=== PATIENT | female | born 1945 | race Caucasian/White ===

== ENCOUNTER 2024-01-10 04:47 | Emergency (ER) | payer MEDICARE, OTHER, SELFPAY ==
[2024-01-10 04:49] VITALS: BP 119/73
[2024-01-10 05:00] VITALS: BP 126/68
[2024-01-10 05:03] VITALS: BMI 28.5
--- NOTE | 2024-01-10 05:21 | ED.GENMED ---
History of Present Illness
<LESLY Abdi - Last Filed: 01/10/24 05:30>
General
Chief Complaint: Chest Problem
Source: patient
Time Seen by Provider: 01/10/24 04:49
Travel History
Have you had any contact with someone who has COVID-19?: No
Do you have any symptoms of coronavirus? Fever > 100 degrees, chills, cough, shortness of breath, sore throat, loss of taste or smell, muscle aches, or headache?: No
History of Present Illness
History of Present Illness:
78 year old female with hx of GERD who BIBA from home with 2 episodes of R-sided chest pain that occurred last night. Pt had one episode last night while she was sleeping. States she woke up with pain described as a muscle-cramp to the R chest and
is nonradiating. She moved around and the pain resolved. Episode lasted for 5 seconds. She went back to sleep. She had a second episode just prior to EMS arrival that was similar and lasted for about 5 seconds and resolved prior to ED arrival.
Denies associated numbness, tingling, SOB, dizziness, head ache, abdominal pain, numbness, tingling, cough, URI symptoms. Currently, she is asymptomatic.
Past History
<LESLY Abdi - Last Filed: 01/10/24 05:30>
Past History
ED Past Medical History: None
ED Past Surgical History: Gynecological
Social History
Tobacco: Non-smoker
Living: alone
Review of Systems
<LESLY Abdi - Last Filed: 01/10/24 05:30>
Review of Systems
Allergies reviewed?: Yes
All Other Systems: ROS reviewed and negative except as documented in HPI and ROS
Constitutional: Reports no symptoms
EENT: Reports no symptoms
Respiratory: Reports no symptoms
Cardiac: Reports chest pain
ABD/GI: Reports no symptoms
: Reports no symptoms
Musculoskeletal: Reports no symptoms
Skin: Reports no symptoms
Neurological: Reports no symptoms
Endocrine: Reports no symptoms
Hematologic/Lymphatic: Reports no symptoms
Psychiatric: Reports no symptoms
Phy Exam
<LESLY Abdi - Last Filed: 01/10/24 05:30>
General Physical Exam
General Presentation: well appearing and no apparent distress
General age: appears stated age
General Skin: warm and dry
General Habitus: normal and elderly
General Mental: alert
General Hydration: appears well hydrated
Cardiovascular Exam
Cardiovascular Exam: regular rate/rhythm, no edema, no gallop, no murmur and normal peripheral pulses
Pulmonary Exam
Pulmonary Exam: lungs clear, no respiratory distress, no rales, chest non tender, no crackles, no rhonchi, no wheezing and no cough
Neurological Exam
Neurological Exam: alert and oriented x3
Skin Exam
Skin Exam: normal color and warm/dry
Psychiatric Exam
Psychiatric Exam: normal mood/affect
Course
<LESLY Abdi - Last Filed: 01/10/24 05:30>
Orders/Labs/Results
Orders:
Orders
01/10/24 04:57
EKG [Electrocardiogram (*1)] Urgent
Reason for Study: Other
Other Reason for Exam: muscle pain
EKG- Treatment ONCE
01/10/24 05:08
Complete Blood Count/With Diff Urgent
Comprehensive Metabolic Panel Urgent
Troponin I Urgent
Abnormal Lab Results
01/10/24
05:08
RBC 4.06 L 10^6/uL
(4.20-5.40)
MCHC 32.6 L g/dL
(33.0-37.0)
Monocytes % 9.4 H %
(1.7-9.3)
Chloride 111 H mmol/L
(98-107)
BUN 20 H mg/dl
(7-17)
Total Protein 5.7 L g/dl
(6.3-8.2)
Albumin 3.4 L g/dl
(3.5-5.0)
01/10/24 05:08
01/10/24 05:08
Vital Signs
Initial and Last Documented VS:
Initial Vital Signs
Temp Pulse Resp BP Pulse Ox
97.6 F 72 20 119/73 96
01/10/24 04:49 01/10/24 04:49 01/10/24 04:49 01/10/24 04:49 01/10/24 04:49
Last Documented Vital Signs
Temp Pulse Resp BP Pulse Ox
97.6 F 64 15 115/67 91
01/10/24 04:49 01/10/24 05:30 01/10/24 05:30 01/10/24 05:30 01/10/24 05:30
<Esther Sandoval MD - Last Filed: 01/10/24 06:03>
Orders/Labs/Results
Orders:
Orders
01/10/24 04:57
EKG [Electrocardiogram (*1)] Urgent
Reason for Study: Other
Other Reason for Exam: muscle pain
EKG- Treatment ONCE
01/10/24 05:08
Complete Blood Count/With Diff Urgent
Comprehensive Metabolic Panel Urgent
Troponin I Urgent
Abnormal Lab Results
01/10/24
05:08
RBC 4.06 L 10^6/uL
(4.20-5.40)
MCHC 32.6 L g/dL
(33.0-37.0)
Monocytes % 9.4 H %
(1.7-9.3)
Chloride 111 H mmol/L
(98-107)
BUN 20 H mg/dl
(7-17)
Total Protein 5.7 L g/dl
(6.3-8.2)
Albumin 3.4 L g/dl
(3.5-5.0)
01/10/24 05:08
01/10/24 05:08
Vital Signs
Initial and Last Documented VS:
Initial Vital Signs
Temp Pulse Resp BP Pulse Ox
97.6 F 72 20 119/73 96
01/10/24 04:49 01/10/24 04:49 01/10/24 04:49 01/10/24 04:49 01/10/24 04:49
Last Documented Vital Signs
Temp Pulse Resp BP Pulse Ox
97.6 F 64 15 115/67 91
01/10/24 04:49 01/10/24 05:30 01/10/24 05:30 01/10/24 05:30 01/10/24 05:30
<LESLY Abdi - Last Filed: 01/10/24 05:30>
MDM/Problems Addressed
Differential Diagnosis Includes:
musculoskeletal pain
MDM/Problems Addressed:
78 year old female who presents with 2 brief episodes of R sided chest pain that occurred last night.
<LESLY Abdi - Last Filed: 01/10/24 05:30>
*Critical Care Note
Total Time (30-74mins, 75-104mins- exclusive of procedures): Not Applicable
ED Attending Note
<LESLY Abdi - Last Filed: 01/10/24 05:30>
-
Portions of this chart may have been created with voice recognition software.� Occasional wrong word or��sound alike� substitutions may have occurred due to the inherent limitations of voice recognition software.
<Esther Sandoval MD - Last Filed: 01/10/24 06:03>
ED Attending Note
Patient seen and examined by attending physician: Yes
I performed the substantive portion of visit, reviewed & personally made and approve the management plan that is documented in note by myself or LAVERNE.: Yes
ED Attending Note:
78-year-old female who went to bed feeling her usual self. She awoke at around 2 AM, and at that time noticed discomfort in the right anterior chest area, lasting 5 seconds or so and then going away completely. She went back to sleep, and then
just before arrival here, she again developed 5 to 10 seconds of pain in the right anterior chest area without associated symptoms. It felt like a muscle cramp, and when she moved it went away. She remains asymptomatic at this time. She denies
fever, chills, cough, sore throat, rhinorrhea, dyspnea, back pain, neck pain, headache, dizziness, leg swelling, or other complaints. On exam,
GENERAL: Alert , in no apparent distress
EYE: pupils equal and reactive
NECK: Supple, no significant adenopathy.
ENT: o/p clr, mmm.
CARDIAC: Regular rate and rhythm .
LUNGS: Clear breath sounds bilaterally, no acute respiratory distress, no wheezes/rales/rhonchi
ABDOMEN: Soft, without focal tenderness, no r/g, no cvat
NEUROLOGICAL: Alert and oriented, no focal neuro deficits
SKIN: Warm and dry, skin intact.
MUSCULOSKELETAL: No edema, well perfused.
PSYCH: Normal and appropriate interaction.
Patient presents to the Emergency Department with momentary right-sided chest pain
Number and Complexity of Problems Addressed at the Encounter
� Chronic conditions affecting care:
� Acute Exacerbation and/or Progression of Chronic Illness:
� Differential Diagnosis includes: But not limited to musculoskeletal discomfort, pleurisy, anxiety, etc.
Amount and/or Complexity of Data to be Reviewed and Analyzed
� I performed an independent evaluation of and my interpretation is:
EKG: Read by me, normal sinus rhythm, normal rate, no acute ischemia
CT:
Xrays:
Laboratory Studies:generally unremarkable
Other:
� Review of other/old records reveals:
� Clinical information was obtained by an independent historian:
� Prescriptions/Medications Considered but not given:
� Further testing considered but not performed:
Risk of Complications and/or Morbidity or Mortality of Patient Management
� Social determinants of health affecting care:
� Discussion with other providers (PCP, Hospitalists, Consultants, etc):
� Escalation of care including admission/observation vs risk of discharge considered: 5:53 AM patient watching TV comfortably, no complaints. Strongly doubt worrisome etiology for her pain given characteristics, etc. Her exam
is normal, ECG normal, no findings in history or physical to suggest dissection, PE, ACS, pneumothorax, etc. Likely discharge after lab results.
Discharge Plan
Departure
Patient Disposition: Home (Routine Discharge)
Date of Disposition: 01/10/24
Time of Disposition: 06:03
Patient with high blood pressure during this ER visit?: No
Condition: Good
Discharge Problem:
Chest pain
Instructions: Chest Pain PCP Follow Up
Prescriptions:
No Action
zinc acetate 50 mg (zinc) Capsule
50 mg PO DAILY
famotidine 40 mg Tablet
40 mg PO HS
biotin 10,000 mcg Capsule
10,000 mcg PO DAILY
naproxen sodium [Aleve] 220 mg Tablet
220 mg PO PRN PRN (Reason: pain)
raloxifene [Evista] 60 mg Tablet
60 mg PO DAILY
Centrum Silver Tablet
1 tab PO DAILY
Ocuvite Tablet
1 tab PO DAILY
potassium gluconate 595 mg (99 mg) Tablet
See Rx Instructions .ROUTE .COMPLEX
Rx Instructions:
595 mg orally. Patient takes on Saturday, Saturday and Saturday.
cholecalciferol (vitamin D3) [Vitamin D3] 125 mcg (5,000 unit) Tablet
125 mcg PO DAILY
ascorbic acid (vitamin C) [Vitamin C] 1,000 mg Tablet
1 mg PO DAILY
vitamin B complex Tablet
1 tab PO DAILY
calcium carbonate [Tums 500] 500 mg calcium (1,250 mg) Tablet,Chewable
500 mg PO DAILY PRN (Reason: indigestion)
hydrocodone-acetaminophen 5-300 mg tablet
1 - 2 tab PO .q4-6 hours PRN (Reason: pain) 5 Days Qty: 5 0RF
amoxicillin 875 mg tablet
875 mg PO BID 7 Days Qty: 14 0RF
Referrals:
Bereket Holguin MD [Family Provider] - Next open appointment
Activity Restrictions/Additional Instructions:
IF YOU DEVELOP DIZZINESS, RECURRENT CHEST PAIN, TROUBLE BREATHING, FEVER, VOMITING, OR OTHER WORRISOME SIGNS, GO TO THE ER IMMEDIATELY!
Interventions
Interventions:
*Risk Screen - Suicide Last Done: 01/10/24 04:49
*General Assessment Last Done: 01/10/24 04:49
*Neglect/Abuse Screening Last Done: 01/10/24 04:49
ED- Fall Risk Assessment Last Done: 01/10/24 04:59
*ED COVID-19 Vaccine History Last Done: 01/10/24 04:59
ED- Cardiac Assessment Last Done: 01/10/24 04:59
ED- Pulmonary Assessment Last Done: 01/10/24 04:59
Discharge Date and Time
Print Language: INDIAN
[2024-01-10 05:30] VITALS: BP 115/67
[2024-01-10 05:39] LABS: ALT (SGPT) 18 U/L (0-35); AST (SGOT) 27 U/L (14-36); Albumin 3.4 g/dl (3.5-5.0); Alkaline Phosphatase 62 U/L (38-126); Blood Urea Nitrogen 20 mg/dl (7-17); Calcium 8.8 mg/dl (8.4-10.2); Carbon Dioxide 26 mmol/L (22-30); Chloride 111 mmol/L (98-107); Estimated Creatinine Clearance 54 ml/min; Glucose 93 mg/dl (70-99); Potassium 3.8 mmol/L (3.5-5.1); Sodium 142 mmol/L (135-145); Total Bilirubin 0.3 mg/dl (0.2-1.3); Total Protein 5.7 g/dl (6.3-8.2); eGFR > 60.00
[2024-01-10 05:42] LABS: % Basophils 0.7 % (0-2); % Eosinophils 4.7 % (0-6); % Immature Granulocytes 0.3 % (0-0.5); % Lymphocytes 32.6 % (20.5-51.1); % Monocytes 9.4 % (1.7-9.3); % Neutrophils 52.3 % (42.2-75.2); Absolute Eosinophils 0.3 10^3/uL (0-0.7); Absolute Lymphocytes 1.9 10^3/uL (1.2-3.4); Absolute Monocytes 0.6 10^3/uL (0.1-0.6); Absolute Neutrophils 3.1 10^3/uL (1.4-6.5); Hematocrit 37.1 % (37.0-47.0); Hemoglobin 12.1 g/dL (12.0-16.0); Mean Corp Hgb Conc. 32.6 g/dL (33.0-37.0); Mean Corpuscular Hgb 29.8 pg (27.0-31.0); Mean Corpuscular Volume 91.4 fL (81.0-99.0); Nucleated Red Blood Cells % 0 %; Platelet Count 222 10^3/uL (130-400); Red Blood Cell Count 4.06 10^6/uL (4.20-5.40); Red Cell Dist. Width 13.2 % (11.5-14.5)
[2024-01-10 05:51] LABS: Troponin I < 0.012 ng/ml
[2024-01-10 06:00] VITALS: BP 113/58
[2024-01-10 06:30] VITALS: BP 97/84
== END 2024-01-10 07:06 | disposition home or self-care (01) ==
LOC: EMR 04:47
PROVIDERS: EMERGENCY PHYSICIAN Emergency Medicine; FAMILY PHYSICIAN Internal Medicine Geriatric Medicine
DX: R07.89 Other chest pain (principal); K21.9 Gastro-esophageal reflux disease without esophagitis; Z88.1 Allergy status to other antibiotic agents; Z91.011 Allergy to milk products; Z88.8 Allergy status to other drugs, medicaments and biological substances; Z91.018 Allergy to other foods
CPT/HCPCS: 99284; 80053; 84484; 85025; 93005

== ENCOUNTER → 2024-02-17 13:37 | Outpatient (REF) | payer MEDICARE, OTHER, SELFPAY | LOC: HWRAD 13:37 | PROVIDERS: ATTENDING PHYSICIAN Nurse Practitioner Adult Health; FAMILY PHYSICIAN Internal Medicine Geriatric Medicine | DX: Z85.3 Personal history of malignant neoplasm of breast (principal); Z12.31 Encounter for screening mammogram for malignant neoplasm of breast; N95.0 Postmenopausal bleeding | CPT/HCPCS: 76830; 76856; 77063; 77067 ==

== ENCOUNTER → 2024-03-10 13:19 | Outpatient (REF) | payer MEDICARE, OTHER, SELFPAY | LOC: HWRAD 13:19 | PROVIDERS: ATTENDING PHYSICIAN Obstetrics & Gynecology Gynecologic Oncology; FAMILY PHYSICIAN Internal Medicine Geriatric Medicine | DX: N85.02 Endometrial intraepithelial neoplasia [EIN] (principal); C50.811 Malignant neoplasm of overlapping sites of right female breast; C54.1 Malignant neoplasm of endometrium | CPT/HCPCS: 71260; 74177; Q9967 ==

== ENCOUNTER → 2024-03-20 07:19 | Day surgery (SDC) | payer MEDICARE, OTHER, SELFPAY ==
[2024-03-20 09:46] VITALS: BMI 28.3
== END ==
LOC: SDSPAT 07:19
PROVIDERS: ATTENDING PHYSICIAN Obstetrics & Gynecology Gynecologic Oncology; FAMILY PHYSICIAN Internal Medicine Geriatric Medicine
DX: Z01.810 Encounter for preprocedural cardiovascular examination (principal); C54.1 Malignant neoplasm of endometrium
CPT/HCPCS: 93005

== ENCOUNTER 2024-03-31 05:58 | Day surgery (SDC) | payer MEDICARE, OTHER, SELFPAY ==
--- NOTE | 2024-03-24 13:09 | PTCARENOTE ---
Patients 03/20 ECG abnormal- reviewed by Dr. Coombs- no additional interventions required
--- NOTE | 2024-03-30 22:00 | HPS.HSE ---
Family Physician
-
Family Physician: INTERVIEWE UNKNOWN - PT NOT
Chief Complaint
-
NA
History of Present Illness
78�year�old�woman�referred�to�us�by�Dr.�Gunnar�and�Norma�Volrath�STATISTICIAN MATHEMATICAL.�Patient�came�in�in�[place]�reporting�vaginal�discharge,�she was�not�100%�sure�whether�it�was�bloody.�Her�clinical�examination�was�unremarkable�and�a�Pap�smear�was�performed.�Cytology
was�negative,�high�risk�HPV�testing�was�negative.�Ultrasound�of�pelvis�showed�uterus�8.7�x�2.8�x�4.5�cm,�there�was�abnormal widening�of�endometrial�echocomplex�2.1�cm�heterogeneous�compared�to�adjacent�myometrium.�Neither�ovary�was�visualized
sonographically.�There�is�no�free�fluid�seen�in�the�pelvis. In�office�endometrial�biopsy�was�performed�Kim�,�this�shows�scant�endometrial�hyperplasia�with�atypia�and�separate
fragments�of�endometrial�polyp�interpreted�at�[facility].�Comments�are�made�that�with�this�degree�of�atypia�it�is�in�a
relatively�limited�specimen�possibility�of�coexistent�adenocarcinoma�cannot�be�excluded�and�a�D&C�for�further�sampling�of�the uterus�is�recommended. Past�medical�history�significant�for�celiac�disease�breast�cancer�gastroesophageal�reflux�disease
Past�surgical�history�includes�right�breast�mastectomy�with�reconstruction�in�2000,�multiple�hernia�repairs,�bilateral�hip�replacement 2019,�left�inguinal�hernia�repair,�bunionectomy�2020,�abscess�removal�left�lower�leg�2020�and�tonsillectomy
Family�history�significant�for�mother�with�COPD�and�a�paternal�grandmother�with�colon�cancer. Medications�include�Aleve,�biotin,�famotidine,�Ocuvite,�pantoprazole,�raloxifene,�vitamin�B�complex,�vitamin�C,�vitamin�D3,�zinc
Allergies�include�cephalexin�and�gluten
Medical History
Past Medical History
Past Medical History: Reports None
Past Surgical History: Reports None
Social History
Tobacco: Non-smoker
Alcohol: None
Drug: None
Family History
Family History: Not pertinent
Allergies / Home Medications
Allergies reflects when Allergies were last updated in [employer].
Home Medications with original date entered in [employer]
Allergy/Medication List:
NKDA
Review of Systems
-
Unable to obtain full review of systems at this time due to: Other
Constitutional: Reports No Symptoms
Physical Exam
Vital Signs
Pelvic Examination:
External normal labia, urethra, anus.
Vagina: Normal mucosa.
Cervix: normal appearance, + discharge.
Uterus: normal size.
Adnexa: No pelvic mass.
RVE: no masses or nodularity
General: Well developed, well nourished patient. In no acute distress.
Neck: No thyromegaly. No cervical lymphadenopathy.
Lungs: Clear to auscultation. Good air movement bilaterally.
Cardiac: Regular rate. Regular rhythm. No murmurs appreciated.
Right Breast: No masses or dimpling. No nipple discharge.
Left Breast: No masses or dimpling. No nipple discharge.
Abdomen: Abdomen is soft. Non�tender to palpation. Non�distended. Abdominal wall tone appears to be weak, there is bulging of
the lower abdominal area just above symphysis pubis. There are palpable areas of mesh throughout abdominal wall
Extremities: No edema.
Hematologic/Lymphatic: No palpable lymphadenopathy.
Physical Exam
General: Well Developed and Well Nourished
Respiratory: Clear
Cardiac: S1/S2
Data Reviewed
-
Diagnostic Radiology: Image Personally Visualized and interpreted
CT Scan: Image Personally Visualized and interpreted
Impression/Plan
-
IMPRESSION:
PLAN:
I spoke with the patient and based on the current endometrial hyperplasia with atypia, with a concern of coexisting endometrial
cancer. I explained to her the nature of development of this type of pathology which typically presents with postmenopausal
discharge and bleeding. Risk factors associated with endometrial cancer including age, obesity, hypertension and diabetes were
discussed. My recommendation is for surgical treatment to include total hysterectomy bilateral salpingo�oophorectomy, injection of
cervix with ICG dye identification and mapping of sentinel lymph nodes and excision of these nodes for definitive management.
Preoperative CT chest abdomen and pelvis will be obtained assuming there is diagnosis of endometrial cancer
Her surgery should be ideally done using a robotic platform, she has had multiple hernia repairs, it is unclear to me as what the
intra�abdominal environment is going to look like.
I will ask her to see general surgery at [facility], I personally spoke to Dr. Rodríguez.
Surgery will be coordinated with general surgery on March 31.
Risks of surgery including infection bleeding injury to adjacent organs, DVT pulmonary embolism and cardiovascular complications
were discussed and reviewed.
She understands that she will see me 2 weeks postoperatively in order to go over the pathology results and discuss whether there
is any need for adjuvant treatments.
[2024-03-31] VITALS (14 sets, daily range): BP systolic 119–133; BP diastolic 59–95; BMI 27.3
[2024-03-31] MEDS: CELEBREX 200 MG PO (06:38)
[2024-03-31] MEDS: TYLENOL 1000 MG PO (06:40)
[2024-03-31] MEDS: NEURONTIN 300 MG PO (06:40)
[2024-03-31] MEDS: HEPARIN 5000 UNITS SC (06:41)
[2024-03-31] MEDS: NORMOSOL-R/PLASMALYTE-A 1000 IV (06:58)
--- NOTE | 2024-03-31 09:46 | OR.RPT ---
Operative Report
Operative Report
Date of procedure: March 31, 2024
Preoperative diagnosis: Endometrial cancer, prior history of multiple abdominal hernia repair
Postoperative diagnosis: Same pending final pathology, intra-abdominal adhesions, absent bilateral tubes and ovaries
Procedure:
Robotic assisted total laparoscopic hysterectomy with excision of bilateral ovarian vessel remnants
Injection of cervix with ICG dye, bilateral, 4 mapping and identification of sentinel lymph nodes
Robotic assisted laparoscopic pelvic sentinel lymphadenectomy
Laparoscopic enterolysis
Surgeon: Roger Valle MS
Assit: Daniel Munoz PA-C
Estimated blood loss 50 cc
Urine output: 300 cc
Anesthesia: General Endotracheal intubation plus tap block
Complications: None
Procedure in detail: This patient is brought to the operating room and placed in supine position general anesthesia was administered she was intubated without any difficulty. Appropriate IV lines were placed, arms were wrapped and tucked along the
patient's sides and all joints were protected tap block was performed by the anesthesia team. She was placed in lithotomy position using yellowfin stirrups and prepped in the abdomen perineum and vagina. Sandoval catheter was placed under sterile
condition to drain the bladder. The patient was prepped and draped. Timeout procedure was carried out she received appropriate antibiotics prophylactically. Veress needle was inserted just below the left subcostal margin into the peritoneal
cavity and CO2 gas was used to insufflate the abdomen to pressure of 15 mmHg. I used a 5 mm laparoscope through a 5 mm port and entered just below that in the left upper quadrant, the entry was successful, there were some adhesions along the
midline and some adhesions in the left upper quadrant, for the most part the mid abdomen was free of adhesions and then there were adhesions of the colon to the left pelvis. Under direct visualization 8 mm robotic ports were introduced in the right
lateral abdomen right upper quadrant and midepigastrium approximately 20 cm cephalad to symphysis pubis. Using laparoscopic scissors we took down adhesions that were in the way of placement of port sites without any energy sharply. Next a 5 mm
laparoscopic port was changed to 8 mm robotic port and an 8 mm robotic port was introduced in the left lateral abdomen. Upper abdomen was examined, the liver spleen stomach right and left diaphragms were without any evidence of abnormalities. The
patient was placed in 30 degree Trendelenburg, robotic system was docked.
I went ahead and placed a speculum in the vagina, anterior lip of the cervix was grasped single-tooth tenaculum, cervical canal was gradually dilated, ICG dye was injected into the cervix at 3 and 9:00 positions, approximately 1 cc at 5 mm and 1 cc
a 10 mm stations, bilaterally. Once this was completed a hatchery attendant uterine manipulator was placed in the uterus that sounded to about 8 cm, with a 3 cm RENNY ring. Vaginal cuff balloon was insufflated. Attention was turned back abdominally and I
sat on the console to perform the remainder of the procedure. Washings were collected from the pelvis and submitted to pathology. Upon examination of the pelvis it was apparent that the patient has had prior history of bilateral
salpingo-oophorectomy. This was not evident was preoperatively and had not been reported on detailed history. The peritoneum involving right and left pelvis was opened retroperitoneal spaces were developed including paravesical and pararectal
spaces. The course of the ureter was identified in the retroperitoneum, the distal end of ovarian vessels were identified elevated and vessel sealer's were used to remove the distal 2 cm. This was submitted to pathology including some of the
adjacent peritoneum. Next using infrared lighting system i.e. firefly we were able to identify the sentinel lymph node along the proximal left external iliac artery this was resected and submitted to pathology, and additional right sided external
iliac vein lymph node was removed and submitted to pathology. We had excellent control of bleeding, there was no injury to ureter and nerves or blood vessels. Bladder flap was sharply developed advanced below the cervical vaginal junction.
Uterine arteries were skeletonized. I used the vessel sealer to seal and divide the uterine vessels bilaterally. Circumferential incision was made around the RENNY ring until the uterus was completely detached. Any additional vessel were captured
and sealed properly. Next the uterus and cervix was removed through the vagina and submitted to pathology. The vaginal apices were closed using 2-0 Vicryl suture in a [id number] fashion incorporating uterosacral ligament for support. I used
a V-Loc suture to close the cuff from right to left and second layer from left to right. Excellent hemostasis was provided, the pelvic organs were irrigated and there was no evidence of bleeding.
The midepigastrium port site was probably placed through the previous mesh. I went ahead and used a Aki Lin system to place a 2-0 Prolene suture to reapproximate the edges of the previously placed mesh together. Air seal system was shut
off and the air was allowed to escape. All ports were removed and robotic system was undocked, skin incisions were closed with 4-0 Monocryl in a subcuticular fashion ends once this was completed Sandoval catheter was removed the vagina was inspected
there was no lacerations or bleeding. Patient was awakened extubated and returned back to recovery room stable awake and extubated condition. Counts of laps instruments and needle was correct x 2. I was present and scrubbed for entire procedure
as dictated above
[2024-03-31] MEDS: DILAUDID 0.25 MG IV ×3 (10:06→10:33)
[2024-03-31] MEDS: MORPHINE SULFATE 1 MG IV (10:24)
[2024-03-31] MEDS: TORADOL 15 MG IV (10:35)
[2024-03-31] MEDS: DEMEROL 12.5 MG IV (10:50)
== END 2024-03-31 14:04 | disposition home or self-care (01) ==
LOC: SDS 05:58
PROVIDERS: ATTENDING PHYSICIAN Obstetrics & Gynecology Gynecologic Oncology
DX: C53.0 Malignant neoplasm of endocervix (principal); C77.2 Secondary and unspecified malignant neoplasm of intra-abdominal lymph nodes; K66.0 Peritoneal adhesions (postprocedural) (postinfection)
CPT/HCPCS: 58570; 38570; 88305; 88307; 88309; 86850; 86900; 86901; 88112; 88341; 88342; 88360

== ENCOUNTER → 2024-05-14 10:31 | Outpatient (REF) | payer MEDICARE, OTHER, SELFPAY ==
[2024-05-14 12:23] VITALS: BP 119/58
== END ==
LOC: RADI 10:31
PROVIDERS: ATTENDING PHYSICIAN Obstetrics & Gynecology Gynecologic Oncology; FAMILY PHYSICIAN Internal Medicine Geriatric Medicine
DX: C54.1 Malignant neoplasm of endometrium (principal)
CPT/HCPCS: 36561; 76937; 77001; C1788

== ENCOUNTER → 2024-05-15 09:22 | Outpatient (REF) | payer MEDICARE, OTHER, SELFPAY ==
[2024-05-15 11:01] LABS: % Basophils 0.8 % (0-2); % Eosinophils 5.1 % (0-6); % Immature Granulocytes 0.2 % (0-0.5); % Lymphocytes 30.6 % (20.5-51.1); % Monocytes 9.4 % (1.7-9.3); % Neutrophils 53.9 % (42.2-75.2); Absolute Eosinophils 0.3 10^3/uL (0-0.7); Absolute Lymphocytes 1.6 10^3/uL (1.2-3.4); Absolute Monocytes 0.5 10^3/uL (0.1-0.6); Absolute Neutrophils 2.8 10^3/uL (1.4-6.5); Hematocrit 40.2 % (37.0-47.0); Mean Corp Hgb Conc. 32.3 g/dL (33.0-37.0); Mean Corpuscular Hgb 28.9 pg (27.0-31.0); Mean Corpuscular Volume 89.3 fL (81.0-99.0); Mean Platelet Volume 10.1 fL (7.4-10.4); Nucleated Red Blood Cells % 0 %; Platelet Count 254 10^3/uL (130-400); Red Cell Dist. Width 13.3 % (11.5-14.5); White Blood Cell Count 5.1 10^3/uL (4.8-10.8)
[2024-05-15 11:30] LABS: ALT (SGPT) 24 U/L (0-35); AST (SGOT) 36 U/L (14-36); Albumin 4.2 g/dl (3.5-5.0); Alkaline Phosphatase 58 U/L (38-126); Blood Urea Nitrogen 12 mg/dl (7-17); Calcium 9.8 mg/dl (8.4-10.2); Carbon Dioxide 30 mmol/L (22-30); Chloride 106 mmol/L (98-107); Glucose 90 mg/dl (70-99); Potassium 4.7 mmol/L (3.5-5.1); Sodium 143 mmol/L (135-145); Total Bilirubin < 0.1 mg/dl (0.2-1.3); Total Protein 6.3 g/dl (6.3-8.2); eGFR > 60.00
[2024-05-15 11:44] LABS: Free T4 1.26 ng/dl (0.78-2.19)
[2024-05-15 11:58] LABS: TSH 1.53 uIU/ml (0.47-4.68)
[2024-05-16 21:49] LABS: Total T3 (Sendout) 132 ng/dL (80-200)
== END ==
LOC: REG 09:22
PROVIDERS: ATTENDING PHYSICIAN Obstetrics & Gynecology Gynecologic Oncology; FAMILY PHYSICIAN Internal Medicine Geriatric Medicine; REFERRING PHYSICIAN Internal Medicine Gastroenterology
DX: N85.02 Endometrial intraepithelial neoplasia [EIN] (principal); C50.811 Malignant neoplasm of overlapping sites of right female breast; C54.1 Malignant neoplasm of endometrium; K90.0 Celiac disease
CPT/HCPCS: 36415; 80053; 83516; 84439; 84443; 84480; 85025; 86231

== ENCOUNTER → 2024-05-26 10:40 | Outpatient (REF) | payer MEDICARE, OTHER, SELFPAY ==
[2024-05-26 11:30] LABS: Hematocrit 35.7 % (37.0-47.0); Hemoglobin 11.8 g/dL (12.0-16.0); Mean Corp Hgb Conc. 33.1 g/dL (33.0-37.0); Mean Corpuscular Hgb 29.9 pg (27.0-31.0); Mean Corpuscular Volume 90.4 fL (81.0-99.0); Mean Platelet Volume 10.2 fL (7.4-10.4); Platelet Count 155 10^3/uL (130-400); Red Blood Cell Count 3.95 10^6/uL (4.20-5.40); Red Cell Dist. Width 13.6 % (11.5-14.5)
[2024-05-26 12:14] LABS: Absolute Neutrophils -Man Diff 10.9 10^3/uL (1.4-6.5); Band Neutrophils 9 % (0-3); Segmented Neutrophils 64 % (42-75)
[2024-05-26 12:15] LABS: Atypical Lymphocytes 2 %; Eosinophils 4 % (0-6); Lymphocytes 15 % (20-51); Monocytes 6 % (2-9); Total Cells Counted 100
[2024-05-26 12:16] LABS: Normal RBC Morphology Yes; Platelets Checked Yes
== END ==
LOC: REG 10:40
PROVIDERS: ATTENDING PHYSICIAN Obstetrics & Gynecology Gynecologic Oncology; FAMILY PHYSICIAN Internal Medicine Geriatric Medicine
DX: N85.02 Endometrial intraepithelial neoplasia [EIN] (principal); C50.811 Malignant neoplasm of overlapping sites of right female breast; C54.1 Malignant neoplasm of endometrium
CPT/HCPCS: 36415; 85025

== ENCOUNTER → 2024-06-02 10:51 | Outpatient (REF) | payer MEDICARE, OTHER, SELFPAY ==
[2024-06-02 12:03] LABS: Hematocrit 35.3 % (37.0-47.0); Hemoglobin 11.7 g/dL (12.0-16.0); Mean Corp Hgb Conc. 33.1 g/dL (33.0-37.0); Mean Corpuscular Hgb 29.1 pg (27.0-31.0); Mean Corpuscular Volume 87.8 fL (81.0-99.0); Mean Platelet Volume 9.9 fL (7.4-10.4); Platelet Count 139 10^3/uL (130-400); Red Blood Cell Count 4.02 10^6/uL (4.20-5.40); Red Cell Dist. Width 14.5 % (11.5-14.5); White Blood Cell Count 16.6 10^3/uL (4.8-10.8)
[2024-06-02 12:27] LABS: % Basophils 0.4 % (0-2); % Eosinophils 0.9 % (0-6); % Immature Granulocytes 1.1 % (0-0.5); % Lymphocytes 9.6 % (20.5-51.1); % Monocytes 8.1 % (1.7-9.3); % Neutrophils 79.9 % (42.2-75.2); Absolute Basophils 0.1 10^3/uL (0-0.2); Absolute Eosinophils 0.2 10^3/uL (0-0.7); Absolute Immature Granulocytes 0.2 10^3/uL (0-0.05); Absolute Lymphocytes 1.6 10^3/uL (1.2-3.4); Absolute Monocytes 1.4 10^3/uL (0.1-0.6); Absolute Neutrophils 13.2 10^3/uL (1.4-6.5); Nucleated Red Blood Cells % 0 %
[2024-06-02 12:28] LABS: ALT (SGPT) 28 U/L (0-35); AST (SGOT) 39 U/L (14-36); Albumin 4.1 g/dl (3.5-5.0); Alkaline Phosphatase 110 U/L (38-126); Blood Urea Nitrogen 17 mg/dl (7-17); Calcium 9.5 mg/dl (8.4-10.2); Carbon Dioxide 27 mmol/L (22-30); Chloride 104 mmol/L (98-107); Glucose 93 mg/dl (70-99); Potassium 4.9 mmol/L (3.5-5.1); Sodium 143 mmol/L (135-145); Total Bilirubin 0.1 mg/dl (0.2-1.3); Total Protein 6.3 g/dl (6.3-8.2); eGFR > 60.00
[2024-06-02 12:46] LABS: Free T4 1.21 ng/dl (0.78-2.19)
[2024-06-02 13:00] LABS: TSH 1.39 uIU/ml (0.47-4.68)
[2024-06-05 05:53] LABS: Total T3 (Sendout) 144 ng/dL (80-200)
== END ==
LOC: REG 10:51
PROVIDERS: ATTENDING PHYSICIAN Obstetrics & Gynecology Gynecologic Oncology; FAMILY PHYSICIAN Internal Medicine Geriatric Medicine
DX: N85.02 Endometrial intraepithelial neoplasia [EIN] (principal); C50.811 Malignant neoplasm of overlapping sites of right female breast; C54.1 Malignant neoplasm of endometrium; R53.2 Functional quadriplegia
CPT/HCPCS: 36415; 80053; 84439; 84443; 84480; 85025

== ENCOUNTER → 2024-06-16 10:42 | Outpatient (REF) | payer MEDICARE, OTHER, SELFPAY ==
[2024-06-16 11:42] LABS: Hematocrit 32.9 % (37.0-47.0); Hemoglobin 10.9 g/dL (12.0-16.0); Mean Corp Hgb Conc. 33.1 g/dL (33.0-37.0); Mean Corpuscular Hgb 30.3 pg (27.0-31.0); Mean Corpuscular Volume 91.4 fL (81.0-99.0); Mean Platelet Volume 9.8 fL (7.4-10.4); Platelet Count 127 10^3/uL (130-400); Red Cell Dist. Width 14.8 % (11.5-14.5); White Blood Cell Count 14.9 10^3/uL (4.8-10.8)
[2024-06-16 12:12] LABS: % Basophils 0.2 % (0-2); % Eosinophils 1.8 % (0-6); % Immature Granulocytes 1.9 % (0-0.5); % Lymphocytes 10.3 % (20.5-51.1); % Monocytes 14.9 % (1.7-9.3); % Neutrophils 70.9 % (42.2-75.2); Absolute Eosinophils 0.3 10^3/uL (0-0.7); Absolute Immature Granulocytes 0.3 10^3/uL (0-0.05); Absolute Lymphocytes 1.5 10^3/uL (1.2-3.4); Absolute Monocytes 2.2 10^3/uL (0.1-0.6); Absolute Neutrophils 10.5 10^3/uL (1.4-6.5); Nucleated Red Blood Cells % 0 %
[2024-06-16 12:19] LABS: Total Thyroxine 9.95 ug/dl (5.5-11.0)
[2024-06-16 12:33] LABS: TSH Reflex To Free T4 1.75 uIU/ml (0.47-4.68)
[2024-06-16 12:42] LABS: ALT (SGPT) 35 U/L (0-35); AST (SGOT) 37 U/L (14-36); Alkaline Phosphatase 123 U/L (38-126); Blood Urea Nitrogen 14 mg/dl (7-17); Calcium 9.5 mg/dl (8.4-10.2); Carbon Dioxide 27 mmol/L (22-30); Chloride 106 mmol/L (98-107); Glucose 116 mg/dl (70-99); Potassium 4.2 mmol/L (3.5-5.1); Sodium 142 mmol/L (135-145); Total Bilirubin 0.2 mg/dl (0.2-1.3); Total Protein 6.1 g/dl (6.3-8.2); eGFR > 60.00
[2024-06-18 15:22] LABS: Total T3 (Sendout) 130 ng/dL (80-200)
== END ==
LOC: REG 10:42
PROVIDERS: ATTENDING PHYSICIAN Internal Medicine Hematology & Oncology; FAMILY PHYSICIAN Internal Medicine Geriatric Medicine
DX: N85.02 Endometrial intraepithelial neoplasia [EIN] (principal); C50.811 Malignant neoplasm of overlapping sites of right female breast; C54.1 Malignant neoplasm of endometrium; Z79.899 Other long term (current) drug therapy
CPT/HCPCS: 36415; 80053; 84436; 84443; 84480; 85025

== ENCOUNTER → 2024-06-23 10:28 | Outpatient (REF) | payer MEDICARE, OTHER, SELFPAY ==
[2024-06-23 11:18] LABS: % Basophils 0.9 % (0-2); % Eosinophils 1.2 % (0-6); % Immature Granulocytes 1.5 % (0-0.5); % Lymphocytes 10.2 % (20.5-51.1); % Monocytes 8.5 % (1.7-9.3); % Neutrophils 77.7 % (42.2-75.2); Absolute Basophils 0.2 10^3/uL (0-0.2); Absolute Eosinophils 0.2 10^3/uL (0-0.7); Absolute Immature Granulocytes 0.2 10^3/uL (0-0.05); Absolute Lymphocytes 1.7 10^3/uL (1.2-3.4); Absolute Monocytes 1.4 10^3/uL (0.1-0.6); Absolute Neutrophils 12.6 10^3/uL (1.4-6.5); Hematocrit 34.2 % (37.0-47.0); Mean Corp Hgb Conc. 32.2 g/dL (33.0-37.0); Mean Corpuscular Hgb 29.9 pg (27.0-31.0); Mean Corpuscular Volume 92.9 fL (81.0-99.0); Mean Platelet Volume 9.6 fL (7.4-10.4); Nucleated Red Blood Cells % 0 %; Platelet Count 118 10^3/uL (130-400); Red Blood Cell Count 3.68 10^6/uL (4.20-5.40); Red Cell Dist. Width 15.9 % (11.5-14.5); White Blood Cell Count 16.3 10^3/uL (4.8-10.8)
[2024-06-23 12:15] LABS: ALT (SGPT) 27 U/L (0-35); AST (SGOT) 35 U/L (14-36); Albumin 3.9 g/dl (3.5-5.0); Alkaline Phosphatase 134 U/L (38-126); Blood Urea Nitrogen 16 mg/dl (7-17); Carbon Dioxide 28 mmol/L (22-30); Chloride 105 mmol/L (98-107); Glucose 94 mg/dl (70-99); Potassium 4.3 mmol/L (3.5-5.1); Sodium 143 mmol/L (135-145); Total Bilirubin 0.2 mg/dl (0.2-1.3); Total Protein 5.9 g/dl (6.3-8.2); eGFR > 60.00
[2024-06-23 12:40] LABS: Free T3 4.82 pg/ml (2.77-5.27); Total Thyroxine 9.03 ug/dl (5.5-11.0)
== END ==
LOC: REG 10:28
PROVIDERS: ATTENDING PHYSICIAN Internal Medicine Hematology & Oncology; FAMILY PHYSICIAN Internal Medicine Geriatric Medicine
DX: N85.02 Endometrial intraepithelial neoplasia [EIN] (principal); C50.811 Malignant neoplasm of overlapping sites of right female breast; C54.1 Malignant neoplasm of endometrium; Z79.899 Other long term (current) drug therapy
CPT/HCPCS: 36415; 80053; 84436; 84443; 84481; 85025

== ENCOUNTER → 2024-06-29 11:01 | Outpatient (REF) | payer MEDICARE, OTHER, SELFPAY ==
[2024-06-29 12:32] LABS: % Eosinophils 1.8 % (0-6); % Immature Granulocytes 0.4 % (0-0.5); % Lymphocytes 12.1 % (20.5-51.1); % Monocytes 10.6 % (1.7-9.3); % Neutrophils 74.1 % (42.2-75.2); Absolute Basophils 0.1 10^3/uL (0-0.2); Absolute Eosinophils 0.2 10^3/uL (0-0.7); Absolute Immature Granulocytes 0.1 10^3/uL (0-0.05); Absolute Lymphocytes 1.4 10^3/uL (1.2-3.4); Absolute Monocytes 1.2 10^3/uL (0.1-0.6); Absolute Neutrophils 8.3 10^3/uL (1.4-6.5); Hematocrit 36.4 % (37.0-47.0); Hemoglobin 11.2 g/dL (12.0-16.0); Mean Corp Hgb Conc. 30.8 g/dL (33.0-37.0); Mean Corpuscular Hgb 29.4 pg (27.0-31.0); Mean Corpuscular Volume 95.5 fL (81.0-99.0); Mean Platelet Volume 9.6 fL (7.4-10.4); Nucleated Red Blood Cells % 0 %; Platelet Count 149 10^3/uL (130-400); Red Blood Cell Count 3.81 10^6/uL (4.20-5.40); Red Cell Dist. Width 16.4 % (11.5-14.5); White Blood Cell Count 11.2 10^3/uL (4.8-10.8)
[2024-06-29 12:51] LABS: ALT (SGPT) 27 U/L (0-35); AST (SGOT) 34 U/L (14-36); Albumin 3.9 g/dl (3.5-5.0); Alkaline Phosphatase 94 U/L (38-126); Blood Urea Nitrogen 25 mg/dl (7-17); Calcium 9.2 mg/dl (8.4-10.2); Carbon Dioxide 27 mmol/L (22-30); Chloride 107 mmol/L (98-107); Glucose 92 mg/dl (70-99); Potassium 4.6 mmol/L (3.5-5.1); Sodium 144 mmol/L (135-145); Total Bilirubin 0.2 mg/dl (0.2-1.3); Total Protein 6.3 g/dl (6.3-8.2); eGFR > 60.00
[2024-06-29 13:15] LABS: Free T3 4.47 pg/ml (2.77-5.27); Total Thyroxine 8.98 ug/dl (5.5-11.0)
[2024-06-29 13:28] LABS: TSH Reflex To Free T4 1.14 uIU/ml (0.47-4.68)
== END ==
LOC: REG 11:01
PROVIDERS: ATTENDING PHYSICIAN Internal Medicine Hematology & Oncology; FAMILY PHYSICIAN Internal Medicine Geriatric Medicine
DX: N85.02 Endometrial intraepithelial neoplasia [EIN] (principal); C50.811 Malignant neoplasm of overlapping sites of right female breast; C54.1 Malignant neoplasm of endometrium; Z79.899 Other long term (current) drug therapy
CPT/HCPCS: 36415; 80053; 84436; 84443; 84481; 85025

== ENCOUNTER → 2024-07-07 09:28 | Outpatient (REF) | payer MEDICARE, OTHER, SELFPAY ==
[2024-07-07 12:31] LABS: Hematocrit 30.9 % (37.0-47.0); Hemoglobin 10.1 g/dL (12.0-16.0); Mean Corp Hgb Conc. 32.7 g/dL (33.0-37.0); Mean Corpuscular Hgb 30.8 pg (27.0-31.0); Mean Corpuscular Volume 94.2 fL (81.0-99.0); Mean Platelet Volume 10.3 fL (7.4-10.4); Platelet Count 151 10^3/uL (130-400); Red Blood Cell Count 3.28 10^6/uL (4.20-5.40); Red Cell Dist. Width 16.9 % (11.5-14.5); White Blood Cell Count 12.7 10^3/uL (4.8-10.8)
[2024-07-07 12:57] LABS: % Basophils 0.2 % (0-2); % Eosinophils 2.6 % (0-6); % Immature Granulocytes 1.4 % (0-0.5); % Lymphocytes 9.4 % (20.5-51.1); % Monocytes 14.8 % (1.7-9.3); % Neutrophils 71.6 % (42.2-75.2); Absolute Eosinophils 0.3 10^3/uL (0-0.7); Absolute Immature Granulocytes 0.2 10^3/uL (0-0.05); Absolute Lymphocytes 1.2 10^3/uL (1.2-3.4); Absolute Monocytes 1.9 10^3/uL (0.1-0.6); Absolute Neutrophils 9.1 10^3/uL (1.4-6.5); Nucleated Red Blood Cells % 0 %
== END ==
LOC: REG 09:28
PROVIDERS: ATTENDING PHYSICIAN Obstetrics & Gynecology Gynecologic Oncology; FAMILY PHYSICIAN Internal Medicine Geriatric Medicine
DX: N85.02 Endometrial intraepithelial neoplasia [EIN] (principal); C50.811 Malignant neoplasm of overlapping sites of right female breast; C54.1 Malignant neoplasm of endometrium; Z79.899 Other long term (current) drug therapy
CPT/HCPCS: 36415; 85025

== ENCOUNTER → 2024-07-14 09:44 | Outpatient (REF) | payer MEDICARE, OTHER, SELFPAY ==
[2024-07-14 10:51] LABS: Hematocrit 33.7 % (37.0-47.0); Hemoglobin 10.8 g/dL (12.0-16.0); Mean Corpuscular Hgb 30.3 pg (27.0-31.0); Mean Corpuscular Volume 94.7 fL (81.0-99.0); Mean Platelet Volume 9.8 fL (7.4-10.4); Platelet Count 113 10^3/uL (130-400); Red Blood Cell Count 3.56 10^6/uL (4.20-5.40); Red Cell Dist. Width 17.9 % (11.5-14.5); White Blood Cell Count 12.3 10^3/uL (4.8-10.8)
[2024-07-14 11:18] LABS: ALT (SGPT) 26 U/L (0-35); AST (SGOT) 34 U/L (14-36); Alkaline Phosphatase 132 U/L (38-126); Blood Urea Nitrogen 18 mg/dl (7-17); Calcium 9.3 mg/dl (8.4-10.2); Carbon Dioxide 28 mmol/L (22-30); Chloride 107 mmol/L (98-107); Glucose 97 mg/dl (70-99); Potassium 4.3 mmol/L (3.5-5.1); Sodium 144 mmol/L (135-145); Total Bilirubin 0.2 mg/dl (0.2-1.3); Total Protein 6.3 g/dl (6.3-8.2); eGFR > 60.00
[2024-07-14 11:37] LABS: Free T3 4.43 pg/ml (2.77-5.27); Total Thyroxine 8.95 ug/dl (5.5-11.0)
[2024-07-14 11:58] LABS: TSH Reflex To Free T4 0.96 uIU/ml (0.47-4.68)
[2024-07-14 12:01] LABS: Absolute Neutrophils -Man Diff 9.3 10^3/uL (1.4-6.5); Band Neutrophils 8 % (0-3); Segmented Neutrophils 68 % (42-75)
[2024-07-14 12:02] LABS: Eosinophils 2 % (0-6); Lymphocytes 15 % (20-51); Monocytes 7 % (2-9); Normal RBC Morphology Yes; Platelets Checked Yes; Total Cells Counted 100
== END ==
LOC: REG 09:44
PROVIDERS: ATTENDING PHYSICIAN Obstetrics & Gynecology Gynecologic Oncology; FAMILY PHYSICIAN Internal Medicine Geriatric Medicine
DX: N85.02 Endometrial intraepithelial neoplasia [EIN] (principal); C50.811 Malignant neoplasm of overlapping sites of right female breast; C54.1 Malignant neoplasm of endometrium; Z79.899 Other long term (current) drug therapy
CPT/HCPCS: 36415; 80053; 84436; 84443; 84481; 85025

== ENCOUNTER → 2024-07-17 12:30 | Outpatient (REF) | payer MEDICARE, OTHER, SELFPAY ==
[2024-07-17 14:00] LABS: ALT (SGPT) 25 U/L (0-35); AST (SGOT) 35 U/L (14-36); Alkaline Phosphatase 111 U/L (38-126); Blood Urea Nitrogen 20 mg/dl (7-17); Calcium 9.3 mg/dl (8.4-10.2); Carbon Dioxide 26 mmol/L (22-30); Chloride 107 mmol/L (98-107); Glucose 115 mg/dl (70-99); Potassium 4.7 mmol/L (3.5-5.1); Sodium 141 mmol/L (135-145); Total Bilirubin 0.2 mg/dl (0.2-1.3); Total Protein 6.4 g/dl (6.3-8.2); eGFR > 60.00
[2024-07-17 14:14] LABS: Free T4 1.02 ng/dl (0.78-2.19)
[2024-07-17 14:28] LABS: TSH 2.14 uIU/ml (0.47-4.68)
[2024-07-20 02:21] LABS: Total T3 (Sendout) 131 ng/dL (80-200)
== END ==
LOC: REG 12:30
PROVIDERS: ATTENDING PHYSICIAN Obstetrics & Gynecology Gynecologic Oncology; FAMILY PHYSICIAN Internal Medicine Geriatric Medicine
DX: N85.02 Endometrial intraepithelial neoplasia [EIN] (principal); C50.811 Malignant neoplasm of overlapping sites of right female breast; C54.1 Malignant neoplasm of endometrium; Z79.899 Other long term (current) drug therapy
CPT/HCPCS: 36415; 80053; 84439; 84443; 84480

== ENCOUNTER → 2024-07-20 14:26 | Outpatient (REF) | payer MEDICARE, OTHER, SELFPAY ==
[2024-07-20 15:58] LABS: % Basophils 0.8 % (0-2); % Eosinophils 1.2 % (0-6); % Immature Granulocytes 0.5 % (0-0.5); % Lymphocytes 17.2 % (20.5-51.1); % Monocytes 12.1 % (1.7-9.3); % Neutrophils 68.2 % (42.2-75.2); Absolute Basophils 0.1 10^3/uL (0-0.2); Absolute Eosinophils 0.1 10^3/uL (0-0.7); Absolute Immature Granulocytes 0.1 10^3/uL (0-0.05); Absolute Lymphocytes 1.8 10^3/uL (1.2-3.4); Absolute Monocytes 1.3 10^3/uL (0.1-0.6); Absolute Neutrophils 7.1 10^3/uL (1.4-6.5); Hemoglobin 10.8 g/dL (12.0-16.0); Mean Corp Hgb Conc. 31.8 g/dL (33.0-37.0); Mean Corpuscular Hgb 31.1 pg (27.0-31.0); Mean Platelet Volume 10.1 fL (7.4-10.4); Nucleated Red Blood Cells % 0 %; Platelet Count 122 10^3/uL (130-400); Red Blood Cell Count 3.47 10^6/uL (4.20-5.40); White Blood Cell Count 10.4 10^3/uL (4.8-10.8)
== END ==
LOC: REG 14:26
PROVIDERS: ATTENDING PHYSICIAN Obstetrics & Gynecology Gynecologic Oncology; FAMILY PHYSICIAN Internal Medicine Geriatric Medicine
DX: N85.02 Endometrial intraepithelial neoplasia [EIN] (principal); C50.811 Malignant neoplasm of overlapping sites of right female breast; C54.1 Malignant neoplasm of endometrium; Z79.899 Other long term (current) drug therapy
CPT/HCPCS: 36415; 85025

== ENCOUNTER → 2024-07-28 09:02 | Outpatient (REF) | payer MEDICARE, OTHER, SELFPAY ==
[2024-07-28 10:30] LABS: Hematocrit 28.6 % (37.0-47.0); Hemoglobin 9.2 g/dL (12.0-16.0); Mean Corp Hgb Conc. 32.2 g/dL (33.0-37.0); Mean Corpuscular Hgb 31.1 pg (27.0-31.0); Mean Corpuscular Volume 96.6 fL (81.0-99.0); Mean Platelet Volume 10.3 fL (7.4-10.4); Platelet Count 114 10^3/uL (130-400); Red Blood Cell Count 2.96 10^6/uL (4.20-5.40); White Blood Cell Count 15.8 10^3/uL (4.8-10.8)
[2024-07-28 10:36] LABS: % Basophils 0.1 % (0-2); % Eosinophils 1.6 % (0-6); % Immature Granulocytes 2.7 % (0-0.5); % Lymphocytes 8.4 % (20.5-51.1); % Monocytes 13.4 % (1.7-9.3); % Neutrophils 73.8 % (42.2-75.2); Absolute Eosinophils 0.3 10^3/uL (0-0.7); Absolute Immature Granulocytes 0.4 10^3/uL (0-0.05); Absolute Lymphocytes 1.3 10^3/uL (1.2-3.4); Absolute Monocytes 2.1 10^3/uL (0.1-0.6); Absolute Neutrophils 11.6 10^3/uL (1.4-6.5); Nucleated Red Blood Cells % 0 %
== END ==
LOC: REG 09:02
PROVIDERS: ATTENDING PHYSICIAN Obstetrics & Gynecology Gynecologic Oncology
DX: N85.02 Endometrial intraepithelial neoplasia [EIN] (principal); C50.811 Malignant neoplasm of overlapping sites of right female breast; C54.1 Malignant neoplasm of endometrium; Z79.899 Other long term (current) drug therapy; L29.9 Pruritus, unspecified
CPT/HCPCS: 36415; 85025

== ENCOUNTER → 2024-08-04 08:57 | Outpatient (REF) | payer MEDICARE, OTHER, SELFPAY ==
[2024-08-04 09:56] LABS: Hematocrit 32.4 % (37.0-47.0); Hemoglobin 10.3 g/dL (12.0-16.0); Mean Corp Hgb Conc. 31.8 g/dL (33.0-37.0); Mean Corpuscular Hgb 31.3 pg (27.0-31.0); Mean Corpuscular Volume 98.5 fL (81.0-99.0); Mean Platelet Volume 9.7 fL (7.4-10.4); Platelet Count 117 10^3/uL (130-400); Red Blood Cell Count 3.29 10^6/uL (4.20-5.40); Red Cell Dist. Width 18.4 % (11.5-14.5); White Blood Cell Count 12.5 10^3/uL (4.8-10.8)
[2024-08-04 10:28] LABS: ALT (SGPT) 26 U/L (0-35); AST (SGOT) 36 U/L (14-36); Alkaline Phosphatase 145 U/L (38-126); Blood Urea Nitrogen 16 mg/dl (7-17); Carbon Dioxide 27 mmol/L (22-30); Chloride 104 mmol/L (98-107); Glucose 88 mg/dl (70-99); Potassium 4.4 mmol/L (3.5-5.1); Sodium 138 mmol/L (135-145); Total Bilirubin 0.2 mg/dl (0.2-1.3); Total Protein 6.3 g/dl (6.3-8.2); eGFR > 60.00
[2024-08-04 11:39] LABS: % Basophils 0.2 % (0-2); % Eosinophils 1.4 % (0-6); % Lymphocytes 11.2 % (20.5-51.1); % Neutrophils 78.2 % (42.2-75.2); Absolute Eosinophils 0.2 10^3/uL (0-0.7); Absolute Immature Granulocytes 0.1 10^3/uL (0-0.05); Absolute Lymphocytes 1.4 10^3/uL (1.2-3.4); Absolute Neutrophils 9.8 10^3/uL (1.4-6.5); Nucleated Red Blood Cells % 0 %
== END ==
LOC: REG 08:57
PROVIDERS: ATTENDING PHYSICIAN Obstetrics & Gynecology Gynecologic Oncology; FAMILY PHYSICIAN Internal Medicine Geriatric Medicine
DX: N85.02 Endometrial intraepithelial neoplasia [EIN] (principal); C50.811 Malignant neoplasm of overlapping sites of right female breast; C54.1 Malignant neoplasm of endometrium; Z79.899 Other long term (current) drug therapy; L29.9 Pruritus, unspecified
CPT/HCPCS: 36415; 80053; 85025

== ENCOUNTER → 2024-08-07 09:27 | Outpatient (REF) | payer MEDICARE, OTHER, SELFPAY ==
[2024-08-07 11:07] LABS: % Basophils 0.6 % (0-2); % Eosinophils 1.4 % (0-6); % Immature Granulocytes 0.5 % (0-0.5); % Lymphocytes 12.7 % (20.5-51.1); % Monocytes 9.7 % (1.7-9.3); % Neutrophils 75.1 % (42.2-75.2); Absolute Basophils 0.1 10^3/uL (0-0.2); Absolute Eosinophils 0.2 10^3/uL (0-0.7); Absolute Immature Granulocytes 0.1 10^3/uL (0-0.05); Absolute Lymphocytes 1.4 10^3/uL (1.2-3.4); Hematocrit 31.8 % (37.0-47.0); Hemoglobin 10.5 g/dL (12.0-16.0); Mean Platelet Volume 9.7 fL (7.4-10.4); Nucleated Red Blood Cells % 0 %; Platelet Count 112 10^3/uL (130-400); Red Blood Cell Count 3.28 10^6/uL (4.20-5.40); Red Cell Dist. Width 17.9 % (11.5-14.5); White Blood Cell Count 10.7 10^3/uL (4.8-10.8)
[2024-08-07 12:10] LABS: ALT (SGPT) 23 U/L (0-35); AST (SGOT) 33 U/L (14-36); Albumin 4.1 g/dl (3.5-5.0); Alkaline Phosphatase 130 U/L (38-126); Blood Urea Nitrogen 17 mg/dl (7-17); Calcium 9.5 mg/dl (8.4-10.2); Carbon Dioxide 28 mmol/L (22-30); Chloride 104 mmol/L (98-107); Glucose 86 mg/dl (70-99); Potassium 4.4 mmol/L (3.5-5.1); Sodium 140 mmol/L (135-145); Total Bilirubin 0.2 mg/dl (0.2-1.3); Total Protein 6.4 g/dl (6.3-8.2); eGFR > 60.00
[2024-08-07 16:30] LABS: Free T4 1.05 ng/dl (0.78-2.19)
[2024-08-07 16:44] LABS: TSH Reflex To Free T4 1.43 uIU/ml (0.47-4.68)
[2024-08-09 18:35] LABS: Total T3 (Sendout) 135 ng/dL (80-200)
== END ==
LOC: REG 09:27
PROVIDERS: ATTENDING PHYSICIAN Obstetrics & Gynecology Gynecologic Oncology; FAMILY PHYSICIAN Internal Medicine Geriatric Medicine
DX: N85.02 Endometrial intraepithelial neoplasia [EIN] (principal); C50.811 Malignant neoplasm of overlapping sites of right female breast; C54.1 Malignant neoplasm of endometrium; Z79.899 Other long term (current) drug therapy
CPT/HCPCS: 36415; 80053; 84439; 84443; 84480; 85025

== ENCOUNTER → 2024-08-18 14:03 | Outpatient (REF) | payer MEDICARE, OTHER, SELFPAY ==
[2024-08-18 15:50] LABS: Hematocrit 28.6 % (37.0-47.0); Hemoglobin 9.1 g/dL (12.0-16.0); Mean Corp Hgb Conc. 31.8 g/dL (33.0-37.0); Mean Corpuscular Hgb 32.4 pg (27.0-31.0); Mean Corpuscular Volume 101.8 fL (81.0-99.0); Red Blood Cell Count 2.81 10^6/uL (4.20-5.40); Red Cell Dist. Width 16.3 % (11.5-14.5); White Blood Cell Count 11.9 10^3/uL (4.8-10.8)
[2024-08-18 16:10] LABS: Mean Platelet Volume 10.2 fL (7.4-10.4); Platelet Count 70 10^3/uL (130-400)
[2024-08-18 16:11] LABS: % Basophils 0.2 % (0-2); % Immature Granulocytes 1.8 % (0-0.5); % Lymphocytes 12.9 % (20.5-51.1); % Neutrophils 64.1 % (42.2-75.2); Absolute Eosinophils 0.4 10^3/uL (0-0.7); Absolute Immature Granulocytes 0.2 10^3/uL (0-0.05); Absolute Lymphocytes 1.5 10^3/uL (1.2-3.4); Absolute Monocytes 2.1 10^3/uL (0.1-0.6); Absolute Neutrophils 7.7 10^3/uL (1.4-6.5); Nucleated Red Blood Cells % 0 %
== END ==
LOC: REG 14:03
PROVIDERS: ATTENDING PHYSICIAN Obstetrics & Gynecology Gynecologic Oncology; FAMILY PHYSICIAN Internal Medicine Geriatric Medicine
DX: N85.02 Endometrial intraepithelial neoplasia [EIN] (principal); C50.811 Malignant neoplasm of overlapping sites of right female breast; C54.1 Malignant neoplasm of endometrium; Z79.899 Other long term (current) drug therapy; L29.9 Pruritus, unspecified
CPT/HCPCS: 36415; 85025

== ENCOUNTER → 2024-08-25 11:11 | Outpatient (REF) | payer MEDICARE, OTHER, SELFPAY ==
[2024-08-25 12:24] LABS: % Basophils 0.6 % (0-2); % Eosinophils 1.3 % (0-6); % Immature Granulocytes 0.6 % (0-0.5); % Lymphocytes 12.5 % (20.5-51.1); % Monocytes 10.1 % (1.7-9.3); % Neutrophils 74.9 % (42.2-75.2); Absolute Basophils 0.1 10^3/uL (0-0.2); Absolute Eosinophils 0.1 10^3/uL (0-0.7); Absolute Immature Granulocytes 0.1 10^3/uL (0-0.05); Absolute Lymphocytes 1.4 10^3/uL (1.2-3.4); Absolute Monocytes 1.1 10^3/uL (0.1-0.6); Absolute Neutrophils 8.1 10^3/uL (1.4-6.5); Hematocrit 30.1 % (37.0-47.0); Hemoglobin 9.6 g/dL (12.0-16.0); Mean Corp Hgb Conc. 31.9 g/dL (33.0-37.0); Mean Corpuscular Hgb 32.7 pg (27.0-31.0); Mean Corpuscular Volume 102.4 fL (81.0-99.0); Mean Platelet Volume 10.1 fL (7.4-10.4); Nucleated Red Blood Cells % 0 %; Platelet Count 99 10^3/uL (130-400); Red Blood Cell Count 2.94 10^6/uL (4.20-5.40); White Blood Cell Count 10.8 10^3/uL (4.8-10.8)
[2024-08-25 12:45] LABS: ALT (SGPT) 24 U/L (0-35); AST (SGOT) 30 U/L (14-36); Albumin 4.1 g/dl (3.5-5.0); Alkaline Phosphatase 110 U/L (38-126); Blood Urea Nitrogen 13 mg/dl (7-17); Carbon Dioxide 28 mmol/L (22-30); Chloride 101 mmol/L (98-107); Glucose 94 mg/dl (70-99); Potassium 4.5 mmol/L (3.5-5.1); Sodium 140 mmol/L (135-145); Total Bilirubin 0.1 mg/dl (0.2-1.3); Total Protein 6.3 g/dl (6.3-8.2); eGFR > 60.00
[2024-08-25 13:04] LABS: Free T4 1.21 ng/dl (0.78-2.19)
[2024-08-25 13:18] LABS: TSH 1.81 uIU/ml (0.47-4.68)
[2024-08-27 17:49] LABS: Total T3 (Sendout) 118 ng/dL (80-200)
== END ==
LOC: REG 11:11
PROVIDERS: ATTENDING PHYSICIAN Obstetrics & Gynecology Gynecologic Oncology; FAMILY PHYSICIAN Internal Medicine Geriatric Medicine
DX: N85.02 Endometrial intraepithelial neoplasia [EIN] (principal); C50.811 Malignant neoplasm of overlapping sites of right female breast; C54.1 Malignant neoplasm of endometrium; Z79.899 Other long term (current) drug therapy; L29.9 Pruritus, unspecified
CPT/HCPCS: 36415; 80053; 84439; 84443; 84480; 85025

== ENCOUNTER → 2024-08-28 10:28 | Outpatient (REF) | payer MEDICARE, OTHER, SELFPAY ==
[2024-08-28 11:07] LABS: % Basophils 0.7 % (0-2); % Eosinophils 1.6 % (0-6); % Immature Granulocytes 0.3 % (0-0.5); % Monocytes 11.9 % (1.7-9.3); % Neutrophils 64.5 % (42.2-75.2); Absolute Basophils 0.1 10^3/uL (0-0.2); Absolute Eosinophils 0.1 10^3/uL (0-0.7); Absolute Lymphocytes 1.5 10^3/uL (1.2-3.4); Absolute Monocytes 0.8 10^3/uL (0.1-0.6); Absolute Neutrophils 4.6 10^3/uL (1.4-6.5); Hematocrit 30.2 % (37.0-47.0); Hemoglobin 9.7 g/dL (12.0-16.0); Mean Corp Hgb Conc. 32.1 g/dL (33.0-37.0); Mean Corpuscular Hgb 32.9 pg (27.0-31.0); Mean Corpuscular Volume 102.4 fL (81.0-99.0); Mean Platelet Volume 9.5 fL (7.4-10.4); Nucleated Red Blood Cells % 0 %; Platelet Count 113 10^3/uL (130-400); Red Blood Cell Count 2.95 10^6/uL (4.20-5.40); Red Cell Dist. Width 15.5 % (11.5-14.5); White Blood Cell Count 7.1 10^3/uL (4.8-10.8)
[2024-08-28 11:44] LABS: ALT (SGPT) 22 U/L (0-35); AST (SGOT) 30 U/L (14-36); Albumin 4.1 g/dl (3.5-5.0); Alkaline Phosphatase 108 U/L (38-126); Blood Urea Nitrogen 15 mg/dl (7-17); Calcium 8.9 mg/dl (8.4-10.2); Carbon Dioxide 28 mmol/L (22-30); Glucose 101 mg/dl (70-99); Potassium 4.4 mmol/L (3.5-5.1); Sodium 138 mmol/L (135-145); Total Bilirubin 0.2 mg/dl (0.2-1.3); Total Protein 6.3 g/dl (6.3-8.2); eGFR > 60.00
[2024-08-28 11:51] LABS: Chloride 103 mmol/L (98-107)
[2024-08-28 11:52] LABS: Free T4 1.01 ng/dl (0.78-2.19)
[2024-08-28 12:05] LABS: TSH Reflex To Free T4 1.94 uIU/ml (0.47-4.68)
[2024-08-31 03:09] LABS: Total T3 (Sendout) 120 ng/dL (80-200)
== END ==
LOC: REG 10:28
PROVIDERS: ATTENDING PHYSICIAN Obstetrics & Gynecology Gynecologic Oncology; FAMILY PHYSICIAN Internal Medicine Geriatric Medicine
DX: N85.02 Endometrial intraepithelial neoplasia [EIN] (principal); C50.811 Malignant neoplasm of overlapping sites of right female breast; C54.1 Malignant neoplasm of endometrium; Z79.899 Other long term (current) drug therapy; L29.9 Pruritus, unspecified; R53.82 Chronic fatigue, unspecified
CPT/HCPCS: 36415; 80053; 84439; 84443; 84480; 85025

== ENCOUNTER → 2024-08-31 09:40 | Outpatient (REF) | payer MEDICARE, OTHER, SELFPAY ==
[2024-08-31 10:26] LABS: % Basophils 0.7 % (0-2); % Eosinophils 1.2 % (0-6); % Immature Granulocytes 0.9 % (0-0.5); % Lymphocytes 17.6 % (20.5-51.1); % Monocytes 13.6 % (1.7-9.3); Absolute Eosinophils 0.1 10^3/uL (0-0.7); Absolute Immature Granulocytes 0.1 10^3/uL (0-0.05); Absolute Monocytes 0.8 10^3/uL (0.1-0.6); Absolute Neutrophils 3.8 10^3/uL (1.4-6.5); Hematocrit 29.7 % (37.0-47.0); Hemoglobin 9.7 g/dL (12.0-16.0); Mean Corp Hgb Conc. 32.7 g/dL (33.0-37.0); Mean Corpuscular Hgb 33.2 pg (27.0-31.0); Mean Corpuscular Volume 101.7 fL (81.0-99.0); Mean Platelet Volume 9.5 fL (7.4-10.4); Nucleated Red Blood Cells % 0 %; Platelet Count 118 10^3/uL (130-400); Red Blood Cell Count 2.92 10^6/uL (4.20-5.40); Red Cell Dist. Width 15.4 % (11.5-14.5); White Blood Cell Count 5.7 10^3/uL (4.8-10.8)
[2024-08-31 10:37] LABS: Erythrocyte Sed Rate 31 mm/hour (0-20)
[2024-08-31 10:52] LABS: C-Reactive Protein < 5.00 mg/L (0.0-10.00)
[2024-08-31 13:18] LABS: ALT (SGPT) 22 U/L (0-35); AST (SGOT) 30 U/L (14-36); Albumin 3.9 g/dl (3.5-5.0); Alkaline Phosphatase 111 U/L (38-126); Blood Urea Nitrogen 17 mg/dl (7-17); Calcium 9.2 mg/dl (8.4-10.2); Carbon Dioxide 27 mmol/L (22-30); Chloride 103 mmol/L (98-107); Glucose 92 mg/dl (70-99); Potassium 4.2 mmol/L (3.5-5.1); Sodium 138 mmol/L (135-145); Total Bilirubin 0.1 mg/dl (0.2-1.3); Total Protein 6.2 g/dl (6.3-8.2); eGFR > 60.00
== END ==
LOC: RAD 09:40
PROVIDERS: ATTENDING PHYSICIAN Nurse Practitioner Family; FAMILY PHYSICIAN Internal Medicine Geriatric Medicine
DX: L03.116 Cellulitis of left lower limb (principal)
CPT/HCPCS: 36415; 73590; 80053; 85025; 85652; 86140

== ENCOUNTER → 2024-09-08 10:16 | Outpatient (REF) | payer MEDICARE, OTHER, SELFPAY ==
[2024-09-08 11:22] LABS: Hematocrit 28.6 % (37.0-47.0); Hemoglobin 9.3 g/dL (12.0-16.0); Mean Corp Hgb Conc. 32.5 g/dL (33.0-37.0); Mean Corpuscular Hgb 33.7 pg (27.0-31.0); Mean Corpuscular Volume 103.6 fL (81.0-99.0); Mean Platelet Volume 10.5 fL (7.4-10.4); Platelet Count 94 10^3/uL (130-400); Red Blood Cell Count 2.76 10^6/uL (4.20-5.40); Red Cell Dist. Width 14.9 % (11.5-14.5); White Blood Cell Count 11.8 10^3/uL (4.8-10.8)
[2024-09-08 11:57] LABS: Absolute Neutrophils -Man Diff 8.7 10^3/uL (1.4-6.5); Anisocytosis Slight; Atypical Lymphocytes 1 %; Band Neutrophils 11 % (0-3); Eosinophils 3 % (0-6); Hypochromasia 1+; Lymphocytes 15 % (20-51); Monocytes 7 % (2-9); Normal RBC Morphology No; Platelets Checked Yes; Polychromasia Slight; Segmented Neutrophils 63 % (42-75)
[2024-09-08 11:58] LABS: Total Cells Counted 100
== END ==
LOC: REG 10:16
PROVIDERS: ATTENDING PHYSICIAN Obstetrics & Gynecology Gynecologic Oncology; FAMILY PHYSICIAN Internal Medicine Geriatric Medicine
DX: N85.02 Endometrial intraepithelial neoplasia [EIN] (principal); C50.811 Malignant neoplasm of overlapping sites of right female breast; C54.1 Malignant neoplasm of endometrium; Z79.899 Other long term (current) drug therapy; L29.9 Pruritus, unspecified
CPT/HCPCS: 36415; 85025

== ENCOUNTER → 2024-09-15 09:55 | Outpatient (REF) | payer MEDICARE, OTHER, SELFPAY ==
[2024-09-15 11:01] LABS: % Basophils 0.4 % (0-2); % Eosinophils 2.3 % (0-6); % Immature Granulocytes 0.9 % (0-0.5); % Lymphocytes 11.8 % (20.5-51.1); % Neutrophils 73.6 % (42.2-75.2); Absolute Basophils 0.1 10^3/uL (0-0.2); Absolute Eosinophils 0.3 10^3/uL (0-0.7); Absolute Immature Granulocytes 0.1 10^3/uL (0-0.05); Absolute Lymphocytes 1.4 10^3/uL (1.2-3.4); Absolute Monocytes 1.3 10^3/uL (0.1-0.6); Absolute Neutrophils 8.5 10^3/uL (1.4-6.5); Hematocrit 28.9 % (37.0-47.0); Hemoglobin 9.3 g/dL (12.0-16.0); Mean Corp Hgb Conc. 32.2 g/dL (33.0-37.0); Mean Corpuscular Hgb 33.3 pg (27.0-31.0); Mean Corpuscular Volume 103.6 fL (81.0-99.0); Mean Platelet Volume 10.3 fL (7.4-10.4); Nucleated Red Blood Cells % 0 %; Platelet Count 113 10^3/uL (130-400); Red Blood Cell Count 2.79 10^6/uL (4.20-5.40); Red Cell Dist. Width 14.5 % (11.5-14.5); White Blood Cell Count 11.5 10^3/uL (4.8-10.8)
[2024-09-15 12:00] LABS: ALT (SGPT) 21 U/L (0-35); AST (SGOT) 30 U/L (14-36); Albumin 3.5 g/dl (3.5-5.0); Alkaline Phosphatase 125 U/L (38-126); Blood Urea Nitrogen 19 mg/dl (7-17); Carbon Dioxide 26 mmol/L (22-30); Chloride 106 mmol/L (98-107); Glucose 89 mg/dl (70-99); Potassium 4.7 mmol/L (3.5-5.1); Sodium 140 mmol/L (135-145); Total Bilirubin 0.3 mg/dl (0.2-1.3); Total Protein 5.9 g/dl (6.3-8.2); eGFR > 60.00
== END ==
LOC: REG 09:55
PROVIDERS: ATTENDING PHYSICIAN Obstetrics & Gynecology Gynecologic Oncology; FAMILY PHYSICIAN Internal Medicine Geriatric Medicine
DX: N85.02 Endometrial intraepithelial neoplasia [EIN] (principal); C50.811 Malignant neoplasm of overlapping sites of right female breast; C54.1 Malignant neoplasm of endometrium; Z79.899 Other long term (current) drug therapy; L29.9 Pruritus, unspecified
CPT/HCPCS: 36415; 80053; 85025

== ENCOUNTER → 2024-09-28 15:04 | Outpatient (REF) | payer MEDICARE, OTHER, SELFPAY ==
[2024-09-28 16:04] LABS: % Basophils 0.5 % (0-2); % Eosinophils 13.5 % (0-6); % Immature Granulocytes 0.5 % (0-0.5); % Lymphocytes 19.5 % (20.5-51.1); % Monocytes 11.6 % (1.7-9.3); % Neutrophils 54.4 % (42.2-75.2); Absolute Eosinophils 1.1 10^3/uL (0-0.7); Absolute Lymphocytes 1.5 10^3/uL (1.2-3.4); Absolute Monocytes 0.9 10^3/uL (0.1-0.6); Absolute Neutrophils 4.3 10^3/uL (1.4-6.5); Hematocrit 30.4 % (37.0-47.0); Mean Corp Hgb Conc. 32.9 g/dL (33.0-37.0); Mean Corpuscular Hgb 33.8 pg (27.0-31.0); Mean Corpuscular Volume 102.7 fL (81.0-99.0); Mean Platelet Volume 9.8 fL (7.4-10.4); Nucleated Red Blood Cells % 0 %; Platelet Count 173 10^3/uL (130-400); Red Blood Cell Count 2.96 10^6/uL (4.20-5.40); Red Cell Dist. Width 14.1 % (11.5-14.5); White Blood Cell Count 7.8 10^3/uL (4.8-10.8)
[2024-09-28 16:30] LABS: ALT (SGPT) 21 U/L (0-35); AST (SGOT) 31 U/L (14-36); Albumin 3.5 g/dl (3.5-5.0); Alkaline Phosphatase 105 U/L (38-126); Blood Urea Nitrogen 19 mg/dl (7-17); Calcium 9.1 mg/dl (8.4-10.2); Carbon Dioxide 26 mmol/L (22-30); Chloride 104 mmol/L (98-107); Glucose 95 mg/dl (70-99); Potassium 4.3 mmol/L (3.5-5.1); Sodium 136 mmol/L (135-145); Total Bilirubin 0.3 mg/dl (0.2-1.3); Total Protein 5.8 g/dl (6.3-8.2); eGFR > 60.00
[2024-09-28 16:41] LABS: Free T4 2.24 ng/dl (0.78-2.19)
[2024-09-28 16:55] LABS: TSH 2.08 uIU/ml (0.47-4.68)
[2024-09-30 15:14] LABS: Total T3 (Sendout) 127 ng/dL (80-200)
== END ==
LOC: REG 15:04
PROVIDERS: ATTENDING PHYSICIAN Obstetrics & Gynecology Gynecologic Oncology
DX: N85.02 Endometrial intraepithelial neoplasia [EIN] (principal); C50.811 Malignant neoplasm of overlapping sites of right female breast; C54.1 Malignant neoplasm of endometrium; Z79.899 Other long term (current) drug therapy; L29.9 Pruritus, unspecified
CPT/HCPCS: 36415; 80053; 84439; 84443; 84480; 85025

== ENCOUNTER → 2024-10-20 12:04 | Outpatient (REF) | payer MEDICARE, OTHER, SELFPAY ==
[2024-10-20 12:50] LABS: % Basophils 0.8 % (0-2); % Eosinophils 14.3 % (0-6); % Immature Granulocytes 0.3 % (0-0.5); % Lymphocytes 14.6 % (20.5-51.1); % Monocytes 14.1 % (1.7-9.3); % Neutrophils 55.9 % (42.2-75.2); Absolute Eosinophils 0.6 10^3/uL (0-0.7); Absolute Lymphocytes 0.6 10^3/uL (1.2-3.4); Absolute Monocytes 0.5 10^3/uL (0.1-0.6); Absolute Neutrophils 2.2 10^3/uL (1.4-6.5); Hematocrit 28.4 % (37.0-47.0); Hemoglobin 9.4 g/dL (12.0-16.0); Mean Corp Hgb Conc. 33.1 g/dL (33.0-37.0); Mean Corpuscular Hgb 33.1 pg (27.0-31.0); Mean Platelet Volume 9.5 fL (7.4-10.4); Nucleated Red Blood Cells % 0 %; Platelet Count 107 10^3/uL (130-400); Red Blood Cell Count 2.84 10^6/uL (4.20-5.40); Red Cell Dist. Width 13.1 % (11.5-14.5); White Blood Cell Count 3.8 10^3/uL (4.8-10.8)
[2024-10-20 13:36] LABS: ALT (SGPT) 21 U/L (0-35); AST (SGOT) 33 U/L (14-36); Albumin 3.5 g/dl (3.5-5.0); Alkaline Phosphatase 88 U/L (38-126); Blood Urea Nitrogen 16 mg/dl (7-17); Calcium 8.7 mg/dl (8.4-10.2); Carbon Dioxide 24 mmol/L (22-30); Chloride 99 mmol/L (98-107); Glucose 100 mg/dl (70-99); Potassium 4.1 mmol/L (3.5-5.1); Sodium 132 mmol/L (135-145); Total Bilirubin 0.4 mg/dl (0.2-1.3); Total Protein 5.6 g/dl (6.3-8.2); eGFR > 60.00
[2024-10-20 14:58] LABS: Free T4 2.07 ng/dl (0.78-2.19)
[2024-10-20 15:11] LABS: TSH 1.08 uIU/ml (0.47-4.68)
[2024-10-23 07:39] LABS: Total T3 (Sendout) 125 ng/dL (80-200)
== END ==
LOC: REG 12:04
PROVIDERS: ATTENDING PHYSICIAN Obstetrics & Gynecology Gynecologic Oncology; FAMILY PHYSICIAN Internal Medicine Geriatric Medicine
DX: N85.02 Endometrial intraepithelial neoplasia [EIN] (principal); C50.811 Malignant neoplasm of overlapping sites of right female breast; C54.1 Malignant neoplasm of endometrium; Z79.899 Other long term (current) drug therapy; L29.9 Pruritus, unspecified
CPT/HCPCS: 36415; 80053; 84439; 84443; 84480; 85025

== ENCOUNTER → 2024-10-26 13:31 | Outpatient (REF) | payer MEDICARE, OTHER, SELFPAY | LOC: RAD 13:31 | PROVIDERS: ATTENDING PHYSICIAN Obstetrics & Gynecology Gynecologic Oncology; FAMILY PHYSICIAN Internal Medicine Geriatric Medicine | DX: N85.02 Endometrial intraepithelial neoplasia [EIN] (principal); C50.811 Malignant neoplasm of overlapping sites of right female breast; C54.1 Malignant neoplasm of endometrium; Z79.899 Other long term (current) drug therapy; L29.9 Pruritus, unspecified | CPT/HCPCS: 71260; 74177; Q9967 ==

== ENCOUNTER → 2024-11-04 09:37 | Outpatient (REF) | payer MEDICARE, OTHER, SELFPAY | LOC: RAD 09:37 | PROVIDERS: ATTENDING PHYSICIAN Internal Medicine Gastroenterology; FAMILY PHYSICIAN Internal Medicine Geriatric Medicine | DX: K59.00 Constipation, unspecified (principal) | CPT/HCPCS: 74018 ==

== ENCOUNTER → 2024-11-10 16:24 | Outpatient (REF) | payer MEDICARE, OTHER, SELFPAY ==
[2024-11-10 15:27] LABS: ALT (SGPT) 18 U/L (0-35); AST (SGOT) 24 U/L (14-36); Albumin 3.4 g/dl (3.5-5.0); Alkaline Phosphatase 94 U/L (38-126); Blood Urea Nitrogen 12 mg/dl (7-17); Carbon Dioxide 25 mmol/L (22-30); Chloride 107 mmol/L (98-107); Glucose 100 mg/dl (70-99); Sodium 139 mmol/L (135-145); Total Bilirubin 0.3 mg/dl (0.2-1.3); Total Protein 5.7 g/dl (6.3-8.2); eGFR > 60.00
[2024-11-10 15:44] LABS: Free T3 8.34 pg/ml (2.77-5.27); Free T4 1.82 ng/dl (0.78-2.19)
[2024-11-10 15:52] LABS: Hematocrit 27.1 % (37.0-47.0); Hemoglobin 8.9 g/dL (12.0-16.0); Mean Corp Hgb Conc. 32.8 g/dL (33.0-37.0); Mean Corpuscular Hgb 32.2 pg (27.0-31.0); Mean Corpuscular Volume 98.2 fL (81.0-99.0); Mean Platelet Volume 9.5 fL (7.4-10.4); Platelet Count 104 10^3/uL (130-400); Red Blood Cell Count 2.76 10^6/uL (4.20-5.40); Red Cell Dist. Width 12.8 % (11.5-14.5); White Blood Cell Count 2.4 10^3/uL (4.8-10.8)
[2024-11-10 15:57] LABS: TSH 1.11 uIU/ml (0.47-4.68)
[2024-11-10 15:59] LABS: Absolute Neutrophils -Man Diff 1.4 10^3/uL (1.4-6.5); Atypical Lymphocytes 5 %; Band Neutrophils 0 % (0-3); Eosinophils 11 % (0-6); Lymphocytes 10 % (20-51); Monocytes 11 % (2-9); Normal RBC Morphology Yes; Platelets Checked Yes; Segmented Neutrophils 62 % (42-75); Total Cells Counted 100
[2024-11-10 16:30] LABS: Iron 44 ug/dl (37-170)
[2024-11-10 16:32] LABS: Reticulocyte Count 2.2 % (0.4-2.8)
[2024-11-10 16:39] LABS: Percent Saturation 15 % (20-50); Total Iron Binding Capacity 284 ug/dl (265-497)
[2024-11-10 17:24] LABS: Ferritin 60.9 ng/ml (11.1-264.0)
[2024-11-10 17:55] LABS: Folate 15.8 ng/ml (2.76-20); Vitamin B12 309 pg/ml (239-931)
[2024-11-13 01:53] LABS: Total T3 (Sendout) 116 ng/dL (80-200)
== END ==
LOC: OIDL 16:24
PROVIDERS: ATTENDING PHYSICIAN Obstetrics & Gynecology Gynecologic Oncology
DX: N85.02 Endometrial intraepithelial neoplasia [EIN] (principal); C50.811 Malignant neoplasm of overlapping sites of right female breast; C54.1 Malignant neoplasm of endometrium; Z79.899 Other long term (current) drug therapy; L29.9 Pruritus, unspecified
CPT/HCPCS: 80053; 82607; 82728; 82746; 83540; 83550; 84439; 84443; 84480; 84481; 85025; 85045

== ENCOUNTER → 2024-11-16 09:03 | Outpatient (REF) | payer MEDICARE, OTHER, SELFPAY ==
[2024-11-16 09:44] LABS: Hematocrit 29.4 % (37.0-47.0); Hemoglobin 9.4 g/dL (12.0-16.0); Mean Corpuscular Hgb 31.3 pg (27.0-31.0); Mean Platelet Volume 9.1 fL (7.4-10.4); Platelet Count 110 10^3/uL (130-400); Red Cell Dist. Width 12.9 % (11.5-14.5); White Blood Cell Count 2.5 10^3/uL (4.8-10.8)
[2024-11-16 11:07] LABS: Absolute Neutrophils -Man Diff 1.7 10^3/uL (1.4-6.5); Band Neutrophils 2 % (0-3); Eosinophils 6 % (0-6); Lymphocytes 18 % (20-51); Monocytes 8 % (2-9); Segmented Neutrophils 66 % (42-75)
[2024-11-16 11:08] LABS: Anisocytosis 1+; Hypochromasia 1+; Normal RBC Morphology No; Ovalocytes 1+; Platelets Checked Yes; Polychromasia 1+; Total Cells Counted 100
== END ==
LOC: REG 09:03
PROVIDERS: ATTENDING PHYSICIAN Nurse Practitioner Adult Health; FAMILY PHYSICIAN Internal Medicine Geriatric Medicine
DX: N85.02 Endometrial intraepithelial neoplasia [EIN] (principal); C50.811 Malignant neoplasm of overlapping sites of right female breast; C54.1 Malignant neoplasm of endometrium; Z79.899 Other long term (current) drug therapy; L29.9 Pruritus, unspecified
CPT/HCPCS: 36415; 85025

== ENCOUNTER → 2024-12-21 13:52 | Outpatient (REF) | payer MEDICARE, OTHER, SELFPAY ==
[2024-12-21 15:01] LABS: ALT (SGPT) 25 U/L (0-35); AST (SGOT) 30 U/L (14-36); Alkaline Phosphatase 101 U/L (38-126); Blood Urea Nitrogen 22 mg/dl (7-17); Calcium 9.4 mg/dl (8.4-10.2); Carbon Dioxide 27 mmol/L (22-30); Chloride 108 mmol/L (98-107); Glucose 91 mg/dl (70-99); Potassium 4.7 mmol/L (3.5-5.1); Sodium 141 mmol/L (135-145); Total Bilirubin 0.3 mg/dl (0.2-1.3); Total Protein 6.5 g/dl (6.3-8.2); eGFR > 60.00
[2024-12-21 15:18] LABS: Total Thyroxine 8.84 ug/dl (5.5-11.0)
[2024-12-21 15:31] LABS: % Basophils 0.7 % (0-2); % Immature Granulocytes 0.2 % (0-0.5); % Monocytes 15.4 % (1.7-9.3); % Neutrophils 56.7 % (42.2-75.2); Absolute Eosinophils 0.2 10^3/uL (0-0.7); Absolute Lymphocytes 0.9 10^3/uL (1.2-3.4); Absolute Monocytes 0.7 10^3/uL (0.1-0.6); Absolute Neutrophils 2.4 10^3/uL (1.4-6.5); Hemoglobin 9.8 g/dL (12.0-16.0); Mean Corp Hgb Conc. 31.6 g/dL (33.0-37.0); Mean Corpuscular Hgb 30.7 pg (27.0-31.0); Mean Corpuscular Volume 97.2 fL (81.0-99.0); Mean Platelet Volume 9.7 fL (7.4-10.4); Nucleated Red Blood Cells % 0 %; Platelet Count 217 10^3/uL (130-400); Red Blood Cell Count 3.19 10^6/uL (4.20-5.40); Red Cell Dist. Width 13.2 % (11.5-14.5); TSH 0.79 uIU/ml (0.47-4.68); White Blood Cell Count 4.2 10^3/uL (4.8-10.8)
[2024-12-24 06:04] LABS: Total T3 (Sendout) 109 ng/dL (80-200)
== END ==
LOC: REG 13:52
PROVIDERS: ATTENDING PHYSICIAN Obstetrics & Gynecology Gynecologic Oncology; FAMILY PHYSICIAN Internal Medicine Geriatric Medicine
DX: N85.02 Endometrial intraepithelial neoplasia [EIN] (principal); C50.811 Malignant neoplasm of overlapping sites of right female breast; C54.1 Malignant neoplasm of endometrium; Z79.899 Other long term (current) drug therapy; L29.9 Pruritus, unspecified
CPT/HCPCS: 36415; 80053; 84436; 84443; 84480; 85025

== ENCOUNTER → 2025-02-01 10:33 | Outpatient (REF) | payer MEDICARE, OTHER, SELFPAY ==
[2025-02-01 11:10] LABS: % Basophils 0.7 % (0-2); % Eosinophils 5.3 % (0-6); % Immature Granulocytes 0.2 % (0-0.5); % Lymphocytes 14.7 % (20.5-51.1); % Monocytes 10.1 % (1.7-9.3); Absolute Eosinophils 0.3 10^3/uL (0-0.7); Absolute Lymphocytes 0.9 10^3/uL (1.2-3.4); Absolute Monocytes 0.6 10^3/uL (0.1-0.6); Absolute Neutrophils 4.2 10^3/uL (1.4-6.5); Hemoglobin 10.3 g/dL (12.0-16.0); Mean Corp Hgb Conc. 32.2 g/dL (33.0-37.0); Mean Corpuscular Hgb 29.4 pg (27.0-31.0); Mean Corpuscular Volume 91.4 fL (81.0-99.0); Mean Platelet Volume 9.5 fL (7.4-10.4); Nucleated Red Blood Cells % 0 %; Platelet Count 224 10^3/uL (130-400); Red Cell Dist. Width 13.5 % (11.5-14.5); White Blood Cell Count 6.1 10^3/uL (4.8-10.8)
[2025-02-01 14:46] LABS: ALT (SGPT) 23 U/L (0-35); AST (SGOT) 31 U/L (14-36); Albumin 3.9 g/dl (3.5-5.0); Alkaline Phosphatase 117 U/L (38-126); Blood Urea Nitrogen 21 mg/dl (7-17); Calcium 9.3 mg/dl (8.4-10.2); Carbon Dioxide 24 mmol/L (22-30); Chloride 110 mmol/L (98-107); Glucose 103 mg/dl (70-99); Sodium 141 mmol/L (135-145); Total Bilirubin 0.3 mg/dl (0.2-1.3); Total Protein 6.4 g/dl (6.3-8.2); eGFR > 60.00
[2025-02-01 14:49] LABS: Free T4 1.29 ng/dl (0.78-2.19)
[2025-02-01 15:04] LABS: TSH 1.18 uIU/ml (0.47-4.68)
[2025-02-01 15:06] LABS: Potassium 4.2 mmol/L (3.5-5.1)
[2025-02-02 17:19] LABS: Total T3 (Sendout) 114 ng/dL (80-200)
== END ==
LOC: REG 10:33
PROVIDERS: ATTENDING PHYSICIAN Obstetrics & Gynecology Gynecologic Oncology
DX: N85.02 Endometrial intraepithelial neoplasia [EIN] (principal); C50.811 Malignant neoplasm of overlapping sites of right female breast; C54.1 Malignant neoplasm of endometrium; Z79.899 Other long term (current) drug therapy; L29.9 Pruritus, unspecified; R53.82 Chronic fatigue, unspecified
CPT/HCPCS: 36415; 80053; 84439; 84443; 84480; 85025

== ENCOUNTER → 2025-02-26 13:03 | Outpatient (REF) | payer MEDICARE, OTHER, SELFPAY | LOC: HWWDC 13:03 | PROVIDERS: ATTENDING PHYSICIAN Internal Medicine Geriatric Medicine | DX: Z12.31 Encounter for screening mammogram for malignant neoplasm of breast (principal) | CPT/HCPCS: 77063; 77067 ==

== ENCOUNTER → 2025-03-15 09:30 | Outpatient (REF) | payer MEDICARE, OTHER, SELFPAY ==
[2025-03-15 10:40] LABS: Hematocrit 34.4 % (37.0-47.0); Hemoglobin 10.8 g/dL (12.0-16.0); Mean Corp Hgb Conc. 31.4 g/dL (33.0-37.0); Mean Corpuscular Volume 91.0 fL (81.0-99.0); Nucleated Red Blood Cells % 0 %; Platelet Count 216 10^3/uL (130-400); Red Cell Dist. Width 14.8 % (11.5-14.5)
[2025-03-15 11:27] LABS: ALT (SGPT) 27 U/L (0-35); AST (SGOT) 35 U/L (14-36); Albumin 4.1 g/dl (3.5-5.0); Alkaline Phosphatase 133 U/L (38-126); Blood Urea Nitrogen 24 mg/dl (7-17); Calcium 9.9 mg/dl (8.4-10.2); Carbon Dioxide 29 mmol/L (22-30); Chloride 106 mmol/L (98-107); Glucose 87 mg/dl (70-99); HDL Cholesterol 53 mg/dl; LDL Cholesterol, Calculated 116 mg/dl; Potassium 4.5 mmol/L (3.5-5.1); Sodium 141 mmol/L (135-145); Total Protein 6.7 g/dl (6.3-8.2); Very Low Density Lipoprotein 19 mg/dl (0-30); eGFR > 60.00
[2025-03-15 11:48] LABS: Vitamin D, 25-OH*** 43.2 ng/mL (30-80)
[2025-03-17 04:46] LABS: Total T3 (Sendout) 124 ng/dL (80-200)
== END ==
LOC: REG 09:30
PROVIDERS: ATTENDING PHYSICIAN Internal Medicine Geriatric Medicine; OTHER PHYSICIAN Obstetrics & Gynecology Gynecologic Oncology
DX: E78.2 Mixed hyperlipidemia (principal); E55.9 Vitamin D deficiency, unspecified; N85.02 Endometrial intraepithelial neoplasia [EIN]; C50.811 Malignant neoplasm of overlapping sites of right female breast; C54.1 Malignant neoplasm of endometrium; Z79.899 Other long term (current) drug therapy; L29.9 Pruritus, unspecified
CPT/HCPCS: 36415; 80053; 80061; 82306; 84436; 84439; 84443; 84480; 85025

== ENCOUNTER → 2025-03-16 15:04 | Outpatient (REF) | payer MEDICARE, OTHER, SELFPAY ==
[2025-03-16 16:23] LABS: TSH 1.46 uIU/ml (0.47-4.68)
== END ==
LOC: OIDL 15:04
PROVIDERS: ATTENDING PHYSICIAN Obstetrics & Gynecology Gynecologic Oncology
DX: N85.02 Endometrial intraepithelial neoplasia [EIN] (principal); C50.811 Malignant neoplasm of overlapping sites of right female breast; C54.1 Malignant neoplasm of endometrium; Z79.899 Other long term (current) drug therapy; L29.9 Pruritus, unspecified; E03.9 Hypothyroidism, unspecified
CPT/HCPCS: 84443

== ENCOUNTER → 2025-03-23 13:22 | Outpatient (REF) | payer MEDICARE, OTHER, SELFPAY ==
[2025-03-23 15:32] LABS: TSH 1.43 uIU/ml (0.47-4.68)
== END ==
LOC: REG 13:22
PROVIDERS: ATTENDING PHYSICIAN Internal Medicine Geriatric Medicine
DX: R94.6 Abnormal results of thyroid function studies (principal)
CPT/HCPCS: 36415; 84439; 84443

== ENCOUNTER → 2025-04-16 08:58 | Outpatient (REF) | payer MEDICARE, OTHER, SELFPAY ==
[2025-04-16 10:20] LABS: Hematocrit 33.3 % (37.0-47.0); Hemoglobin 10.7 g/dL (12.0-16.0); Mean Corp Hgb Conc. 32.1 g/dL (33.0-37.0); Mean Corpuscular Volume 91.7 fL (81.0-99.0); Nucleated Red Blood Cells % 0 %; Platelet Count 209 10^3/uL (130-400); Red Cell Dist. Width 15.5 % (11.5-14.5)
[2025-04-16 10:55] LABS: ALT (SGPT) 27 U/L (0-35); AST (SGOT) 33 U/L (14-36); Albumin 3.9 g/dl (3.5-5.0); Alkaline Phosphatase 122 U/L (38-126); Blood Urea Nitrogen 19 mg/dl (7-17); Calcium 9.5 mg/dl (8.4-10.2); Carbon Dioxide 27 mmol/L (22-30); Chloride 107 mmol/L (98-107); Glucose 101 mg/dl (70-99); Potassium 4.4 mmol/L (3.5-5.1); Sodium 141 mmol/L (135-145); Total Protein 6.3 g/dl (6.3-8.2); eGFR > 60.00
[2025-04-16 11:23] LABS: CA 125 7.3 U/mL (0-35)
== END ==
LOC: REG 08:58
PROVIDERS: ATTENDING PHYSICIAN Obstetrics & Gynecology Gynecologic Oncology; FAMILY PHYSICIAN Internal Medicine Geriatric Medicine
DX: N85.02 Endometrial intraepithelial neoplasia [EIN] (principal); C50.811 Malignant neoplasm of overlapping sites of right female breast; C54.1 Malignant neoplasm of endometrium; Z79.899 Other long term (current) drug therapy; L29.9 Pruritus, unspecified
CPT/HCPCS: 36415; 80053; 85025; 86304

== ENCOUNTER → 2025-04-19 08:15 | Outpatient (REF) | payer MEDICARE, OTHER, SELFPAY | LOC: RAD 08:15 | PROVIDERS: ATTENDING PHYSICIAN Obstetrics & Gynecology Gynecologic Oncology; FAMILY PHYSICIAN Internal Medicine Geriatric Medicine | DX: N85.02 Endometrial intraepithelial neoplasia [EIN] (principal); C50.811 Malignant neoplasm of overlapping sites of right female breast; C54.1 Malignant neoplasm of endometrium; Z79.899 Other long term (current) drug therapy | CPT/HCPCS: 71260; 74177; Q9967 ==

== ENCOUNTER → 2025-04-26 09:33 | Outpatient (REF) | payer MEDICARE, OTHER, SELFPAY ==
[2025-04-26 10:22] LABS: Hematocrit 35.3 % (37.0-47.0); Hemoglobin 11.2 g/dL (12.0-16.0); Mean Corp Hgb Conc. 31.7 g/dL (33.0-37.0); Mean Corpuscular Volume 92.2 fL (81.0-99.0); Nucleated Red Blood Cells % 0 %; Platelet Count 230 10^3/uL (130-400); Red Cell Dist. Width 15.6 % (11.5-14.5)
[2025-04-26 11:20] LABS: TSH 1.85 uIU/ml (0.47-4.68)
[2025-04-26 11:21] LABS: ALT (SGPT) 29 U/L (0-35); AST (SGOT) 37 U/L (14-36); Albumin 4.1 g/dl (3.5-5.0); Alkaline Phosphatase 121 U/L (38-126); Blood Urea Nitrogen 20 mg/dl (7-17); Calcium 9.7 mg/dl (8.4-10.2); Carbon Dioxide 30 mmol/L (22-30); Chloride 107 mmol/L (98-107); Glucose 87 mg/dl (70-99); Potassium 4.8 mmol/L (3.5-5.1); Sodium 141 mmol/L (135-145); Total Protein 6.5 g/dl (6.3-8.2); eGFR > 60.00
== END ==
LOC: REG 09:33
PROVIDERS: ATTENDING PHYSICIAN Obstetrics & Gynecology Gynecologic Oncology; FAMILY PHYSICIAN Internal Medicine Geriatric Medicine
DX: N85.02 Endometrial intraepithelial neoplasia [EIN] (principal); C50.811 Malignant neoplasm of overlapping sites of right female breast; C54.1 Malignant neoplasm of endometrium; Z79.899 Other long term (current) drug therapy; L29.9 Pruritus, unspecified
CPT/HCPCS: 36415; 80053; 84443; 85025

== ENCOUNTER → 2025-07-09 10:08 | Outpatient (REF) | payer MEDICARE, OTHER, SELFPAY ==
[2025-07-09 11:51] LABS: Hematocrit 37.4 % (37.0-47.0); Hemoglobin 11.8 g/dL (12.0-16.0); Mean Corp Hgb Conc. 31.6 g/dL (33.0-37.0); Mean Corpuscular Volume 96.6 fL (81.0-99.0); Nucleated Red Blood Cells % 0 %; Platelet Count 227 10^3/uL (130-400); Red Cell Dist. Width 14.1 % (11.5-14.5)
[2025-07-09 14:40] LABS: TSH 1.03 uIU/ml (0.47-4.68)
[2025-07-09 14:58] LABS: ALT (SGPT) 30 U/L (0-35); AST (SGOT) 34 U/L (14-36); Albumin 4.2 g/dl (3.5-5.0); Alkaline Phosphatase 126 U/L (38-126); Blood Urea Nitrogen 25 mg/dl (7-17); Calcium 9.5 mg/dl (8.4-10.2); Carbon Dioxide 29 mmol/L (22-30); Chloride 105 mmol/L (98-107); Glucose 69 mg/dl (70-99); Potassium 4.3 mmol/L (3.5-5.1); Sodium 136 mmol/L (135-145); Total Protein 6.9 g/dl (6.3-8.2); eGFR > 60.00
== END ==
LOC: REG 10:08
PROVIDERS: ATTENDING PHYSICIAN Obstetrics & Gynecology Gynecologic Oncology; FAMILY PHYSICIAN Internal Medicine Geriatric Medicine; REFERRING PHYSICIAN Internal Medicine Gastroenterology
DX: N85.02 Endometrial intraepithelial neoplasia [EIN] (principal); C50.811 Malignant neoplasm of overlapping sites of right female breast; C54.1 Malignant neoplasm of endometrium; Z79.899 Other long term (current) drug therapy; L29.9 Pruritus, unspecified
CPT/HCPCS: 36415; 80053; 84443; 85025

== ENCOUNTER → 2025-07-21 13:12 | Outpatient (REF) | payer MEDICARE, OTHER, SELFPAY ==
[2025-07-21 13:31] VITALS: BP 114/61; BP_SYST 72
== END ==
LOC: RADI 13:12
PROVIDERS: ATTENDING PHYSICIAN Internal Medicine Hematology & Oncology
DX: Z45.2 Encounter for adjustment and management of vascular access device (principal); C54.1 Malignant neoplasm of endometrium
CPT/HCPCS: 36590; 77001

== ENCOUNTER 2025-07-27 06:35 | Day surgery (SDC) | payer MEDICARE, OTHER, SELFPAY | END 2025-07-27 12:20 | disposition home or self-care (01) | LOC: GI 06:35 | PROVIDERS: ATTENDING PHYSICIAN Internal Medicine Gastroenterology; FAMILY PHYSICIAN Internal Medicine Geriatric Medicine | DX: K63.89 Other specified diseases of intestine (principal); R19.4 Change in bowel habit; Q43.8 Other specified congenital malformations of intestine; K64.8 Other hemorrhoids; K29.50 Unspecified chronic gastritis without bleeding; K22.2 Esophageal obstruction; K22.89 Other specified disease of esophagus; K90.0 Celiac disease | CPT/HCPCS: 45380; 43239; 88305; 88342 ==